=== PATIENT | female | born 1990 | race Caucasian/White ===

== ENCOUNTER 2024-05-06 14:34 | Inpatient (IN) ==
[2024-05-06] MEDS ORDERED: ACETAMINOPHEN 325 MG TAB PO PRN (15:05)
--- NOTE | 2024-05-06 15:33 | History & Physical Report ---
Date of Service May 06, 2024 Assessment & Plan (1) Irregular uterine contractions: Plan: 34-year-old G1, P0 at 37 weeks and 6 days of gestation who has been feeling contractions since last night, but more regular since this morning, Vital signs stable afebrile, heart rate reassuring, GBS negative, Cervix is 1 to 2 cm, toco showing contractions every 5 to 7 minutes, patient is talking through them without any signs of pain, We discussed options of expectant management, walking, going home and coming back when they become more painful and regular, pain management with IV Stadol and observe for at least an hour and see how she feels. After long discussion patient decided to stay and get IV Stadol one-time and then see how she feels in an hour or so, All questions were answered, Continue to monitor, Will evaluate in an hour. (2) False labor after 37 completed weeks of gestation: (3) Insulin controlled gestational diabetes mellitus (GDM) during : History of Present Illness Chief Complaint: Contractions Primary Care Provider: [facility] patient is a 34-year-old G1, P0 at 37 weeks and 6 days of gestation who was sent from office with contractions. Patient states she has been feeling contractions since last night when she woke up with some of them and went back to sleep. Since this morning contractions get more regular and more painful. She feels them every 6 to 7 minutes, pain level is between 6-7. She states she stops walking when they come when she is up but in the bed she feels better. She denies leakage of fluid or vaginal bleeding. She reports good movements. She was in the office this afternoon for routine OB visit and NST for GDM A2. [place] showed contractions every 6 to 7 minutes and her cervix was checked by a PA and sent here for possible labor. She states they have been the same since this morning. Her has been uncomplicated except GDM A2, on insulin, GBS negative. Allergies Allergy/AdvReac Type Severity Reaction Status Date / Time pineapple Allergy Anaphylaxis Verified 04/12/24 00:59 codeine AdvReac Headache Verified 04/12/24 00:59 Home Medications Medication Instructions Recorded Confirmed Type bupropion HCl 150 mg tablet,12 hr 150 mg PO DAILY 04/12/24 04/12/24 History sustained-release (Wellbutrin SR) insulin glargine 100 unit/mL (3 10 unit subcut HS 04/12/24 04/12/24 History mL) subcutaneous pen (Lantus Solostar U-100 Insulin) omeprazole 20 mg capsule,delayed 20 mg PO DAILY 04/12/24 04/12/24 History release sertraline 100 mg tablet (Zoloft) 200 mg PO HS 04/12/24 04/12/24 History Patient History Medical History Insulin controlled gestational diabetes mellitus (GDM) during History of HPV infection ADHD Depression with anxiety Surgical History [place] teeth removed Hx of appendectomy Social History Smoking Status: Never smoker Hx Alcohol Use: No Hx Substance Use: No Preferred Language: Urdu Communication Ability: Effective 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 Beliefs That Will Affect Care: Shinto marital status: Current Living Situation: Spouse Other Information That Helps Us Care for You: Yes (Dad wants to announce baby gender at ) Feels Safe at Home: Yes Review of Systems as per Subjective / HPI Physical Exam Constitutional: WD/WN, vitals as above well developed, well nourished and comfortable Gastrointestinal (Abdomen): normal bowel sounds, soft, nontender, no hepatosplenomegaly Genitourinary: normal external appearance OB Exam Abdomen: + vertex Manual OB Exam: + cervical dilation 1 cm (1-2), + cervical effacement 70% and + station -2 OB Exam Monitor Tracing: + external uterine monitor used and + category I Results & Data Vital Signs (Past 12 Hours) Vital Signs Pulse BP 05/06/24 14:52 95 H 120/79
[2024-05-06] MEDS: BUTORPHANOL TARTRATE 2 MG/ML VIAL IV ONE ×2 (16:11→21:09)
--- NOTE | 2024-05-06 18:26 | Obstetrical Progress Note ---
Date of Service May 06, 2024 Subjective Patient is reevaluated. She slept after IV Stadol was given and woke up with painful contractions. Not much change from earlier. No LOF/VB +FM VE: unchanged Patient is hungry desires to eat and then ambulate Continue to monitor Will recheck in 2 hours Results & Data Vital Signs (Past 12 Hours) Vital Signs Temp Pulse Resp BP 05/06/24 16:47 86 101/56 L 05/06/24 16:16 80 109/68 05/06/24 15:06 36.9 C 95 H 17 120/79 05/06/24 14:52 95 H 120/79 05/06/24 14:50 17 05/06/24 14:50 36.9 C 17
--- NOTE | 2024-05-06 20:58 | Obstetrical Progress Note ---
Date of Service May 06, 2024 Subjective Patient are dinner and walked around Pain is getting more intense, 8.5 /10 VE: 2-3 cm/ 80%, -1, tight amniotic bag, minimal change from last exam FHR categ I [place] ctxs q 5-7 min Patient desires another dose of IV stadol Start IVF bolus and reevaluate for early labor All questions were answered. Results & Data Vital Signs (Past 12 Hours) Vital Signs Temp Pulse Resp BP 05/06/24 19:00 36.6 C 18 05/06/24 19:00 36.6 C 72 18 99/65 L 05/06/24 16:47 86 101/56 L 05/06/24 16:16 80 109/68 05/06/24 15:06 36.9 C 95 H 17 120/79 05/06/24 14:52 95 H 120/79 05/06/24 14:50 17 05/06/24 14:50 36.9 C 17
[2024-05-06] MEDS: SODIUM CHLORIDE 0.9% 1,000 ML IV SCH ×2 (20:59→21:44)
--- OUTSIDE RECORDS SUMMARY | 2024-05-06 21:39 | External Medical Summary | Summary of Care ---
Author Name Unknown Organization [facility] Address [address] [place] [address] Phone [phone] Care Team Providers Care Business Analytics Analyst Name Role Phone René Valle MD Primary Care Provider [phone] Encounter Details Date Type Department Care Team (Late st Contact Info) Description 05/02/2024 8:45 AM EST Office Visit Administrative Hearing Officer Obstetrics Maternal Medicine, [address] [place] [address] Marika Carbajal, DO [address] [place] [address] Insulin controlled gestational diabetes mellitus (GDM) in third trimester*; Ultrasound for screening for growth restriction; 37 weeks gestation of Allergies Active Allergy Reactions Criticality Noted Date Comments Codeine 05/10/2022 Other Allergy (See Comments) 023 Pineapple Penicillins Rash Low 01/06/2013 Pineapple 01/07/2023 documented as of this encounter (statuses as of 05/02/2024) Medications Ondansetron HCl 4 MG Oral Tablet (Zofran) Take 1 Tablet by mouth every 8 hours as needed for Nausea. 60 Tablet 3 4 Active buPROPion HCl ER (SR) 150 MG Oral Tablet Extended Release 12 Hour (Wellbutrin SR)Indications:Re current major depressive disorder, in partial remission (HCC),DAVION (generalized anxiety disorder),Panic disorder Take 1 Tablet by mouth in the morning. 30 Tablet 5 4 Active famotidine 20 MG OR Take 0.5 Tablets by mouth in the morning. Active Sertraline HCl 100 MG Oral Tablet (Zoloft)Indicatio ns:Recurrent major depressive disorder, in partial remission (HCC),DAVION (generalized anxiety disorder),Panic disorder Take 2 Tablets by mouth every night at bedtime. 60 Tablet 5 4 Active Calcium Carbonate Antacid 500 MG Oral Tablet Chewable (Tums) Take 1 Tablet by mouth in the morning. Active Omeprazole Magnesium 20 MG Oral Tablet Delayed Release (PriLOSEC OTC) Take 1 Tablet by mouth in the morning. Active LeanAppsio Flex System w/Device Kit Use to test blood sugars 4 times daily (fasting, 1 hour after breakfast, lunch, and dinner) 1 Kit 4 Active Gaopenguch Delica Lancets 30G Use to test blood sugars 4 times daily (fasting, 1 hour after breakfast, lunch, and dinner) 200 Each 6 4 Active LeanAppsio In Vitro Strip (Glucose Blood) Use to test blood sugars 4 times daily (fasting, 1 hour after breakfast, lunch, and dinner) 125 Strip 6 4 Active Insulin Glargine Solostar 100 UNIT/ML Subcutaneous Solution Pen-injector (Lantus SoloStar)Indicati ons:Insulin controlled gestational diabetes mellitus (GDM) in third trimester Inject 10 Units under the skin at bedtime. 15 mL 3 4 Active BD Pen Needle Mini U/F 31G X 5 MM (Insulin Pen Needle)Indication s:Insulin controlled gestational diabetes mellitus (GDM) in third trimester Use with insulin once daily 100 Each 3 4 Active documented as of this encounter (statuses as of 05/02/2024) Active Problems Problem Noted Date Diagnosed Date History of respiratory syncytial virus (RSV) vac cination 04/08/2024 Overview (04/08/2024): 04/08/24 Iron deficiency anemia 03/13/2024 Insulin controlled gestation al diabetes mellitus (GDM) in third trimester 03/06/2024 Overview (04/29/2024): Diagnosed at 29 weeks Nutrition referral ordered; appt scheduled 03/13/2024 OneTouch Verio meter Lab Results Component Value Date/Time 50-G GESTATIONAL GLUCOSE, 1 HOUR - [facility] 133 (H) 02/28/2024 09:50 AM 100-G GESTATIONAL GLUCOSE, 1 HOUR - [facility] 180 (H) 03/06/2024 09:40 AM 100-G GESTATIONAL GLUCOSE, 2 HOUR - [facility] 170 (H) 03/06/2024 10:36 AM 100-G GESTATIONAL GLUCOSE, 3 HOUR - [facility] 102 03/06/2024 11:37 AM 100-G GESTATIONAL GLUCOSE, FASTING - [facility] 90 03/06/2024 08:34 AM 03/12/24: MFM [facility] consult complete. Referred to Current [facility]. Instructions provided to report blood sugars each week for MFM review; continue diet controlled 03/18/2024-RPM-3 of 7 elevated fasting blood sugars. Advised to watch diet, eat bedtime snack, and avoid fasting longer than 8 to 10 hours. Will review again next week. 03/25/2024-RPM-4 of 7 elevated fasting blood sugars. Sent message to patient and [facility] to schedule follow up [facility] appointment. 04/01/24: RPM reviewed; blood sugars still elevated in the morning; follow up [facility] scheduled 04/08. Will try to move up. 04/03/2024 Follow up [facility] compete; elevated fastings; Ordered Lantus 10 units at bedtime 04/08/20240611-NWU-oltzovx stable (2 elevated fasting blood sugars) 04/15/20242691-HLS-vmmsgyq stable (rare elevation) 04/22/24: RPM reviewed; stable; continue Lantus 10 units at bedtime 04/29/20242399-BUU-ehyizmlmj via hemal and messaging. Stable Assessment & Plan (04/04/2024 4:56 PM EST): Working with [facility]. Assessment & Plan (03/18/2024 9:13 AM EST): Managed by [facility]. Log reviewed with patient. All post-prandials within goal. Some elevated fastings to 96. Reviewed importance of nighttime snack with protein. Encouraged diet and exercise. Assessment & Plan (03/12/2024 9:43 AM EST): CONSIDERATIONS: Reviewed etiology and risks associated with gestational diabetes mellitus (GDM), including risks to , fetus, and maternal progression to Type 2 DM. Instructed on proper use of glucometer; supplies ordered, if indicated. Advised that life-long screening for diabetes is recommended every 1-3 years. RECOMMENDATIONS: Recommend monitoring blood sugars with daily fasting blood sugar (maintained at less than 95) and 1 hour postprandial measurements (maintained at less than 140). Medications should be adjusted to maintain these target values. Report levels to MFM (Maternal- Medicine) weekly. Recommend nutrition consult with RDN (Registered Dietitian Healthcare Customer Service). Lifestyle changes are also indicated including optimizing gestational weight gain and physical activity of 30 minutes per day, if not otherwise contraindicated in . Insulin is preferred if medications are indicated to optimize euglycemia. Metformin (preferred over glyburide) may also be used in some circumstances. Reviewed the risks and benefits of each. Recommend ultrasound, surveillance and delivery as follows: A1GDM, delivery should be accomplished by 41w0d. A2GDM, recommend growth assessment with MFM every 4 weeks, initiate surveillance with twice weekly NSTs at 32 weeks and continue until delivery at 39 weeks. Recommend intrapartum monitoring every 1-2 hours (A2GDM) or every 4 hours (A1GDM) and treat with insulin if indicated. Recommend 2-hour glucose tolerance testing with 75-gram glucose load during admission (or 6-8 weeks if not completed). Antepartum anemia complicating 024 Overview (03/12/2024): Blood management referral placed Anemia Labs Lab Results Component Value Date/Time HGB 10.9 (L) 02/28/2024 09:50 AM HCT 34.5 (L) 02/28/2024 09:50 AM FERRITIN - [facility] 16 02/28/2024 09:50 AM VITAMIN B12 - [facility] 437 02/28/2024 09:50 AM FOLIC ACID - [facility] 10.0 02/28/2024 09:50 AM IRON BINDING CAPACITY - [facility] 446 (H) 02/28/2024 09:50 AM MCV 90.3 02/28/2024 09:50 AM Assessment & Plan (03/18/2024 9:12 AM EST): Hgb 10.9, consistent with iron deficiency. Recommend iron BID with vitamin C. Patient reports she is going to be getting an iron infusion. Assessment & Plan (03/12/2024 9:44 AM EST): Recommend following departmental anemia protocol. Supervision of normal first , antepartu m 10/25/2023 Depression complicating , antepartum Overview (03/12/2024): History of anxiety and depression On meds at [facility] and feeling great. Taking Zoloft and Wellbutrin Managed by Psychiatrist - has appt scheduled 03/14/2024 Reports a stable mood in . Denies any suicidal or homicidal ideation. Reports she has a good support system at home. Assessment & Plan (03/17/2024 1:56 PM EST): Mood stable, denies SI/HI. Continue wellbutrin and zoloft. Assessment & Plan (03/12/2024 9:43 AM EST): CONSIDERATIONS: Untreated maternal anxiety and/or depression may be associated with an increased risk of multiple poor obstetrical outcomes including miscarriages, low weight, and delivery. Women with a history of anxiety or depression are at risk for recurrence both during and/or the period. Studies of first-trimester SSRI exposure do not demonstrate consistent data to support an increased risk for structural malformations. Anti-anxiety or depression medications have been associated with transient effects (withdrawal syndrome). RECOMMENDATIONS: Mental illness can and should be treated during when the benefits of treatment outweigh potential risks. Referral to behavioral health services as clinically indicated. Dyslipidemia 12/21/2022 Irritable bowel syndrome with diarrhea Depression with anxiety 06/10/2022 ADHD (attention deficit hype ractivity disorder), combined type 06/10/2022 High risk HPV infection 06/10/2022 Estimated Date of Delivery Comme nts Yes 05/21/2024 Based on last me nstrual period of 08/15/2023 (Exact Date) documented as of this encounter (statuses as of 05/02/2024) Resolved Problems Problem Noted Date Diagnosed Date Resolved Date Abnormal glucose tolerance i n mother complicating 02/29/2024 04/03/2024 Overview (02/29/2024): Failed glucola. 3hr GTT ordered documented as of this encounter (statuses as of 05/02/2024) Immunizations Name Administration Dates Next Due RSV Vac., Bivalent, Perfusion F, Pf,0.5 Ml (Abry svo) 04/08/2024 Seasonal Influenza, Trivalent, (IIV3), PF, (Fluz one) 01/31/2024 TDAP, Age 7 and older, IM (Adacel) 02/28/2024 documented as of this encounter Social History Tobacco Use Types Packs/Day Years Used Date Smoking Tobacco: Never Passive Smoke Exposure: Never Smokeless Tobacco: Never Alcohol Use Standard Drinks/Week Comments Not Currently 0 (1 standard drink = 0.6 oz pur e alcohol) denies in Hunger Vital Sign Answer Date Recorded Within the past 12 months, y ou worried that your food would run out before you got the money to buy more. Never true 12/20/19 24 Within the past 12 months, t he food you bought just didn't last and you didn't have money to get more. Never true 12/20/2023 [place] Depression Scale Answer Date Recorded [place] Depression Scale Total 11 10/25/2023 The thought of harming myself has occurred to me . Never 10/25/2023 Childcare Answer Date Recorded Do you feel overwhelmed with taking care of a child, family member or friend? No 12/20/2023 Does your family need help f inding childcare? (Household - for ages 0-17 years) Not on file 12/20/2023 Clothing Answer Date Recorded Have you been unable to get clothing when it was really needed? No 12/20/2023 Is your family able to get c lothes or diapers when needed? (Household - for ages 0-17 years) Not on file 12/20/2023 Personal Safety Answer Date Recorded Do you feel unsafe or have concerns for your saf ety? No 12/20/2023 Do you have concerns for you r family's safety? (Household - for ages 0-17 years) Not on file 12/20/2023 Utilities Answer Date Recorded Do you have trouble paying y our heating, water, or electric bill? No 12/20/2023 Is your family able to pay t he heat, water, or electric bill? (Household - for ages 0-17 years) Not on file 12/20/2023 Does your family have access to good internet? (Household - for ages 0-17 years) Not on file 12/20/2023 Employment Status Answer Date Recorded Are you unemployed or without regular income? No 12/20/2023 Does the household have a re lar source of income? (Household - for ages 0-17 years) Not on file 12/20/2023 Social Connections Answer Date Recorded How often do you feel lonely or isolated from th ose around you? Never 12/20/2023 Financial Resource Strain Answer Date R ecorded Do you have any trouble payi ng for your medications, or do you think you might in the future? No 12/20/2023 Does your family have troubl e paying for medicine? (Household - for ages 0-17 years) Not on file 12/20/2023 Transportation Needs Answer Date Record ed READ ONLY Do you have troubl e getting a ride to medical visits or work? Never True 12/20/2023 Does your family have a hard time getting a ride to doctors visits? (Household - for ages 0-17 years) Not on file 12/20/2023 Has lack of transportation k ept you from medical appointments, meetings, work, or from getting things needed for daily living? Check all that apply. No 12/20/2023 Do you (or your family) have trouble finding or paying for a ride (transportation)? (Household - for ages 0-17 years) Not on file 12/20/2023 Housing Stability Answer Date Recorded Do you currently live in a s helter or have no steady place to sleep at night? No 12/20/2023 READ ONLY Do you think you a re at risk of becoming homeless? No 12/20/2023 Does your family worry about paying for your home or becoming homeless? (Household - for ages 0-17 years) Not on file 0 12/20/2023 Are you homeless or worried that you might be in the future? No 12/20/2023 Are you (or your family) manuelito eless or worried that you might be in the future? (Household - for ages 0-17 years) Not on file Food Insecurity Answer Date Recorded Do you need food for this week? No 12/20/2023 Are you able to get enough f ood for your family? (Household - for ages 0-17 years) Not on file 12/20/2023 Does your family need food t his week? (Household - for ages 0-17 years) Not on file 12/20/2023 Do you always have enough fo od for your family? (Household - for ages 0-17 years) Not on file 12/20/2023 Estimated Date of Delivery Comme nts Yes 05/21/2024 Based on last me nstrual period of 08/15/2023 (Exact Date) Sex and Gender Information Value Date Recorded Sex Assigned at Female 05/16/2022 8:06 AM EST Legal Sex Female 1:20 PM EDT Gender Identity Female 05/16/2022 8:06 AM EST Sexual Orientation Straight 05/16/2022 8: 06 AM EST Occupation Industry Job Start Date Job End Date [employer] Not on file Not on file Not on file documented as of this encounter Progress Notes * Marika Carbajal, DO - 05/02/2024 9:50 AM EST Ru presented today at 37w2d for an ultrasound for the following indications: Insulin controlled gestational diabetes mellitus (GDM) in third trimester Ultrasound for screening for growth restriction 37 weeks gestation of Ultrasound summary: Patient presented at 37w 2d for growth assessment. Normal growth with EFW 2611 g at 12%ile. Normal RIA at 9.3 cm. Cephalic presentation. I reviewed the ultrasound images. Ru was given the opportunity to meet with me if she had any questions. Please refer to the ultrasound report for additional details about today's ultrasound examination. RECOMMENDATIONS: Follow up with MFM for ultrasound as clinically indicated. 2x weekly NSTs. See prior formal MFM consultation note. Thank you for allowing us to participate in the care of this patient. Please call with any questions. Marika Carbajal DO 05/02/2024 9:50 AM documented in this encounter Plan of Treatment Upcoming Encounters Date Type Department Care Team (Late st Contact Info) Description 05/06/2024 1:15 PM EST Office Visit Gynecology/Obstetrics Leila Lynn [address] [place] [address] Rita Benton CRNP [address] [place] [address] Erin Lynn Stress Tests М[facility]ина [address] [place] [address] 05/07/2024 9:30 AM EST Pharmacy Pharmacy, [address] [address] 05/09/2024 9:00 AM EST Office Visit Gynecology/Obstetrics Leila Lynn [address] [place] [address] Floresita Cm PA-C [address] [place] [address] Shane Non Stress Tests [address] [place] [address] 05/13/2024 1:00 PM EST Office Visit Gynecology/Obstetrics [facility] Lynn [address] [place] [address] Rita Benton CRNP [address] [place] [address] Erin Lynn Stress Tests [address] [place] [address] 05/16/2024 9:45 AM EST Office Visit Gynecology/Obstetrics Leila Lynn [address] [place] [address] Stacey Wei CRNP [address] [place] [address] Shane, Non Stress Tests [address] [place] [address] Health Maintenance Due Date Last Done Comments Depression Monitoring 2004 Hepatitis B Vaccine (1 of 3 - 19+ 3-dose series) 2011 COVID-19 Vaccine (2 - 2023-2 5 season) 2023 04/04/2022 Pap Smear 05/23/2026 05/23/2023, 05/18/2022 Cervical Cancer Screening 05/23/2028 HPV/Co-Test 05/23/2028 05/23/2023, 05/18/2022 DTap/Tdap Vaccines (2 - Td o r Tdap) 02/27/2034 02/28/2024 Influenza Vaccine (FLU shot) Completed 06/2023, 04/02/2014, 03/07/2013 HPV (Gardasil) Vaccine Aged Out No lo nger eligible based on patient's age to complete this topic MENINGOCOCCAL (MENACTRA/MENVEO) Aged Out No longer eligible b ased on patient's age to complete this topic Pneumococcal Vaccine: Pediatrics (0 to 5 Years) and At-Risk Patients (6 to 18 Years and 19+ Years) Aged Out No longer eligible based on patient's age to complete this topic documented as of this encounter Medical Devices Not on filedocumented as of this encounter Visit Diagnoses Diagnosis Supervision of high risk in third trimester- Primary Unspecified high-risk 30 weeks gestation of state, incidental Diet controlled gestational diabetes mellitus (GDM) in third trimester Depression complicating , antepartum Mental disorders of mother, antepartum Antepartum anemia complicating Anemia, antepartum Diet controlled gestational diabetes mellitus (GDM) in third trimester- Primary Antepartum anemia complicating Anemia, antepartum Depression complicating , antepartum Mental disorders of mother, antepartum 30 weeks gestation of state, incidental Insulin controlled gestational diabetes mellitus (GDM) in third trimester- Primary Ultrasound for screening for growth restriction screening for growth retardation using ultrasonics 33 weeks gestation of state, incidental Insulin controlled gestational diabetes mellitus (GDM) in third trimester- Primary Ultrasound for screening for growth restriction screening for growth retardation using ultrasonics 37 weeks gestation of state, incidental documented in this encounter Care Teams Business Analytics Analyst Relationship Specialty Start Date End Date René Valle MD [address] [place] [address] PCP - General Family Medicine 05/19/22 documented as of this encounter
--- OUTSIDE RECORDS SUMMARY | 2024-05-06 21:39 | External Medical Summary | Summary of Care ---
Author Name Unknown Organization [facility] Address [address] [facility] [place] [address] Phone [phone] Care Team Providers Care Creative Producer Name Role Phone René Valle MD Primary Care Provider [phone] [phone] Reason for Visit * Reason Comments Return Visit Non Stress Test Encounter Details Date Type Department Care Team (Late st Contact Info) Description 04/25/2024 1:00 PM EST Office Visit Gynecology/Obstetric s [facility] [address] [place] [address] Stacey Wei CRNP [address] [place] [address] Shane Non Stress Tests Марина [address] [place] [address] Supervision of normal first , antepartum*; Depression complicating , antepartum; Antepartum anemia complicating ; Insulin controlled gestational diabetes mellitus (GDM) in third trimester; History of respiratory syncytial virus (RSV) vaccination; Non-reactive NST (non-stress test); Vulvar irritation Allergies Active Allergy Reactions Criticality Noted Date Comments Codeine 05/10/2022 Other Allergy (See Comments) 023 Pineapple Penicillins Rash Low 01/06/2013 Pineapple 01/07/2023 documented as of this encounter (statuses as of 04/25/2024) Medications Ondansetron HCl 4 MG Oral Tablet [...] Tablet by mouth in the morning. Active Thermedical Flex System w/Device Kit Use to test blood sugars 4 times daily (fasting, 1 hour after breakfast, lunch, and dinner) 1 Kit 4 Active [employer] Delica Lancets 30G Use to test blood sugars 4 times daily (fasting, 1 hour after breakfast, lunch, and dinner) 200 Each 6 4 Active Thermedical In Vitro Strip (Glucose Blood) Use to [...] with insulin once daily 100 Each 3 12/04/202 4 Active documented as of this encounter (statuses as of 04/25/2024) Active Problems Problem Noted Date Diagnosed Date History of respiratory syncytial virus (RSV) vac cination 04/08/2024 Overview (04/08/2024): 04/08/24 Iron deficiency anemia 03/13/2024 Insulin controlled gestation al diabetes mellitus (GDM) in third trimester 03/06/2024 Overview (04/22/2024): Diagnosed at 29 weeks Nutrition referral ordered; [...] blood sugars. Sent message to patient and [facility] PARs to schedule follow up ADAPT appointment. 04/01/24: RPM reviewed; blood sugars still elevated in the morning; follow up ADAPT scheduled 04/08. Will try to move up. 04/03/2024 Follow up ADAPT compete; elevated fastings; Ordered Lantus 10 units at bedtime 04/08/20247664-YTC-kekjwxj stable (2 elevated fasting blood sugars) 04/15/20248365-USW-crguhuf stable (rare elevation) 04/22/24: RPM reviewed; stable; continue Lantus 10 units at bedtime Assessment & Plan (04/04/2024 4:56 PM EST): [...] Recommend nutrition consult with RDN (Registered Dietitian Manager [place]). Lifestyle changes are also indicated including optimizing [...] as of this encounter (statuses as of 04/25/2024) Resolved Problems Problem Noted Date Diagnosed Date Resolved Date Abnormal glucose tolerance i n mother complicating 02/29/2024 04/03/2024 Overview (02/29/2024): Failed glucola. 3hr GTT ordered documented as of this encounter (statuses as of 04/25/2024) Immunizations Name Administration Dates Next Due RSV [...] money to get more. Never true 12/20/2023 [place] Depression Scale Answer Date Recorded [place] Depression Scale Total 11 10/25/2023 The thought [...] No 12/20/2023 Does the household have a [facility] source of income? (Household - for ages [...] on file documented as of this encounter Last Filed Vital Signs Vital Sign Reading Time Taken Comments Blood Pressure 122/78 04/25/2024 1:25 PM EST Pulse - - Temperature - - Respiratory Rate - - Oxygen Saturation - - Inhaled Oxygen Concentration - - Weight 71.2 kg (157 lb) 04/25/2024 1:25 PM EST Height - - Body Mass Index 27.81 04/15/2024 10:48 AM EST documented in this encounter Progress Notes * Stacey Wei CRNP - 04/25/2024 1:25 PM EST 36w2d Used Monistat a few weeks ago for a yeast infection, still with some irritation. BV swab completed today. No other concerns. Baby is active. No contractions, bleeding, LOF. GBS today as well. 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 Name of java developer architect: Negin ASSESSMENT assessment with Non-stress Test completed on 04/25/2024 at 36.2weeks gestation for indicationof gestational diabetes mellitus heart baseline: 140 bpm Variability: Moderate Decelerations: absent Accelerations: present Contractions: None NST start time: 1256 NST stop time: 1330 NST strip reviewed, interpreted, and approved by OB provider, SAHIL Torres . NST strip stored in clinic storage file * Negin Yu CMA - 04/25/2024 1:25 PM EST 36w2d GBS swab today Denies any concerns documented in this encounter Plan of Treatment Upcoming Encounters Date Type Department Care Team (Late st Contact Info) Description 04/29/2024 10:15 AM EST Office Visit Gynecology/Obstetrics [facility] [address] [place] [address] Rita Benton CRNP [address] [place] [address] Erin Lynn Stress Tests Марина [place] [address] 05/02/2024 8:45 AM EST Imaging Maternal Medicine Imaging, Марина Lynn [address] [place] [address] 05/02/2024 11:00 AM EST Office Visit Gynecology/Obstetrics Leila Lynn [address] [place] [address] Floresita Cm PA-C [address] [place] [address] 05/06/2024 1:15 PM EST Office Visit Gynecology/Obstetrics [facility] [address] [place] [address] BackRita mcclelland CRNP [address] [place] [address] Shane Non Stress Tests Марина [address] [place] [address] 05/07/2024 9:30 AM EST Pharmacy Pharmacy, [address] [address] 05/09/2024 9:00 AM EST Office Visit Gynecology/Obstetrics [facility] [address] [place] [address] Floresita Cm PA-C [address] [place] [address] Shane Non Stress Tests Марина [address] [place] [address] 05/13/2024 1:00 PM EST Office Visit Gynecology/Obstetrics [facility] [address] [place] [address] Rita Benton CRNP [address] [place] [address] Shane Non Stress Tests Марина [address] [place] [address] 05/16/2024 9:45 AM EST Office Visit Gynecology/[facility]st[facility] [address] [place] [address] Stacey Wei, FINANCIAL SERVICES SPECIALIST [address] [place] [address] Lynn, Non Stress Tests Марина [address] [place] [address] Scheduled Orders Name Type Priority Associated Diagnoses Orde r Schedule GROUP B STREP CULTURE/PCR Lab Routine Supervision of normal first , antepartum Expected: 04/25/2024, Expires: 04/25/2025 BPP W/O NON-STRESS TEST Medical Imaging Routine Non-reactive NST (non-stress test) Expected: 04/25/2024, Expires: 05/26/2025 VAGINOSIS PANEL, PCR Lab Routine Vulvar irritation Expected: 04/25/2024, Expires: 04/25/2025 Health Maintenance Due Date Last Done Comments Depression Monitoring 2004 Hepatitis B Vaccine (1 of 3 - 19+ 3-dose series) 2011 COVID-19 Vaccine ( - 2023-2 5 season) 2023 04/04/2022 Pap [...] ultrasonics 33 weeks gestation of state, incidental Supervision of normal first , antepartum- Primary Depression complicating , antepartum Mental disorders of mother, antepartum Antepartum anemia complicating Anemia, antepartum Insulin controlled gestational diabetes mellitus (GDM) in third trimester History of respiratory syncytial virus (RSV) vaccination Non-reactive NST (non-stress test) Abnormal findings on screening Vulvar irritation Other specified noninflammatory disorder of vulva and perineum documented in this encounter Care Teams Creative Producer Relationship Specialty Start Date End Date René Valle MD [address] [place] [address] PCP - General Family Medicine 05/19/22 documented as of this encounter
--- OUTSIDE RECORDS SUMMARY | 2024-05-06 21:39 | External Medical Summary | Summary of Care ---
Author Name Unknown Organization [facility] Address [address] [place] [address] Phone [phone] Care Team Providers Care Clinical Courier Name Role Phone René Valle MD Primary Care Provider [phone] Encounter Details Date Type Department Care Team (Late st Contact Info) Description 05/02/2024 8:45 AM EST Office Visit Nail Making Machine Tender Obstetrics Maternal Medicine, [address] [place] [address] Marika Carbajal, DO [address] [place] [address] Insulin controlled gestational diabetes mellitus [...] Tablet by mouth in the morning. Active FlexMinderio Flex System w/Device Kit Use to test blood sugars 4 times daily (fasting, 1 hour after breakfast, lunch, and dinner) 1 Kit 4 Active Diabetic[employer]uch Delica Lancets 30G Use to test blood sugars 4 times daily (fasting, 1 hour after breakfast, lunch, and dinner) 200 Each 6 4 Active FlexMinderio In Vitro Strip (Glucose Blood) Use to [...] blood sugars. Sent message to patient and [facility] PARs to schedule follow up ADAPT appointment. 04/01/24: RPM reviewed; blood sugars still elevated in the morning; follow up ADAPT scheduled 04/08. Will try to move up. 04/03/2024 Follow up ADAPT compete; elevated fastings; Ordered Lantus 10 units at bedtime 04/08/20245249-OVK-ciuncnw stable (2 elevated fasting blood sugars) 04/15/20247366-VDD-hcohrhk stable (rare elevation) 04/22/24: RPM reviewed; stable; continue Lantus 10 units at bedtime 04/29/20245103-DZP-ojxqxukog via hemal and messaging. Stable Assessment & [...] Recommend nutrition consult with RDN (Registered Dietitian Director Medical Economics). Lifestyle changes are also indicated including optimizing [...] money to get more. Never true 12/20/2023 [place] Depression Scale Answer Date Recorded [place] Depression Scale Total 11 10/25/2023 The thought [...] Team (Late st Contact Info) Description 05/02/2024 11:00 AM EST Office Visit Gynecology/Obstetrics [facility] [address] [place] [address] Floresita Cm PA-C [address] [place] [address] 05/06/2024 1:15 PM EST Office Visit Gynecology/Obstetrics [facility] [address] [place] [address] BackerRita CRNP [address] [place] [address] Shane Non Stress Tests Марина [address] [place] [address] 05/07/2024 9:30 AM EST Pharmacy Pharmacy, [place] [address] [place] [address] Clinic, [place] [address] [place] [address] 05/09/2024 9:00 AM EST Office Visit Gynecology/Obstetrics [facility] [address] [place] [address] Floresita Cm PA-C [address] [place] [address] Shane Non Stress Tests Марина [address] [place] [address] 05/13/2024 1:00 PM EST Office Visit Gynecology/Obstetrics [facility] [address] [place] [address] EriserRita CRNP [address] [place] [address] Shaen, Non Stress Tests Марина [place] [place] [address] 05/16/2024 9:45 AM EST Office Visit Gynecology/Obstetrics Leila Lynn [address] [place] [address] Stacey Wei CRNP [address] [place] [address] Lynn, Non Stress Tests Марина [address] [place] [address] Health Maintenance Due Date Last Done Comments [...] incidental documented in this encounter Care Teams Clinical Courier Relationship Specialty Start Date End Date René Valle MD [address] [facility] [place] [address] PCP - General Family Medicine 05/19/22 documented as of this encounter
--- OUTSIDE RECORDS SUMMARY | 2024-05-06 21:39 | External Medical Summary | Summary of Care ---
Author Name Unknown Organization [facility] Address [address] [facility] [place] [address] Phone [phone] Care Team Providers Care Entry Level Account Executive Name Role Phone René Valle MD Primary Care Provider [phone] Reason for Visit * Reason Onset Date Comments Test Results 04/26/2024 Encounter Details Date Type Department Care Team (Late st Contact Info) Description 04/26/2024 Telephone Gynecology/Obstetrics [facility] [address] [place] [address] Rita Benton CRNP [address] [place] [address] Test Results Allergies Active Allergy Reactions Criticality Noted Date Comments Codeine 05/10/2022 Other Allergy (See Comments) 023 Pineapple Penicillins Rash Low 01/06/2013 Pineapple 01/07/2023 documented as of this encounter (statuses as of 04/26/2024) Medications Ondansetron HCl 4 MG Oral Tablet [...] Tablet by mouth in the morning. Active [employer]Names Flex System w/Device Kit Use to test blood sugars 4 times daily (fasting, 1 hour after breakfast, lunch, and dinner) 1 Kit 4 Active Diurnal [employer] Lancets 30G Use to test blood sugars 4 times daily (fasting, 1 hour after breakfast, lunch, and dinner) 200 Each 6 4 Active [employer] In Vitro Strip (Glucose Blood) Use to [...] as of this encounter (statuses as of 04/26/2024) Active Problems Problem Noted Date Diagnosed Date [...] blood sugars. Sent message to patient and [facility] PARs to schedule follow up ADAPT appointment. 04/01/24: RPM reviewed; blood sugars still elevated in the morning; follow up ADAPT scheduled 04/08. Will try to move up. 04/03/2024 Follow up ADAPT compete; elevated fastings; Ordered Lantus 10 units at bedtime 04/08/20247834-RYG-fpfpfwc stable (2 elevated fasting blood sugars) 04/15/20243275-ICY-wzelegd stable (rare elevation) 04/22/24: RPM reviewed; stable; [...] Recommend nutrition consult with RDN (Registered Dietitian Front Desk Supervisor). Lifestyle changes are also indicated including optimizing [...] as of this encounter (statuses as of 04/26/2024) Resolved Problems Problem Noted Date Diagnosed Date Resolved Date Abnormal glucose tolerance i n mother complicating 02/29/2024 04/03/2024 Overview (02/29/2024): Failed glucola. 3hr GTT ordered documented as of this encounter (statuses as of 04/26/2024) Immunizations Name Administration Dates Next Due RSV [...] money to get more. Never true 12/20/2023 [place] Depression Scale Answer Date Recorded [place] Depression Scale Total 11 10/25/2023 The thought [...] 12/20/2023 Does the household have a re gular source of income? (Household - for ages [...] on file documented as of this encounter Miscellaneous Notes * Telephone Encounter - Patrica Bella RN - 04/26/2024 12:13 PM EST Patient returned call and made aware. Patient verbalized understanding. * Telephone Encounter - Svetlana Andrews RN - 04/26/2024 11:44 AM EST left message for patient to call office * Telephone Encounter - Rita Benton CRNP - 04/26/2024 11:01 AM EST Covering for Satcey; +yeast. Recommend Monistat 7 day OTC. SAHIL Zepeda documented in this encounter Plan of Treatment Upcoming Encounters Date Type Department Care Team (Late st Contact Info) Description 04/29/2024 10:15 AM EST Office Visit Gynecology/Obstetrics Leila Lynn [address] [place] [address] Rita Benton CRNP [address] [place] [address] Erin Lynn Stress Tests Марина [address] [place] [address] 05/02/2024 8:45 AM EST Imaging Maternal Medicine Imaging, Марина Ludwigs [address] [place] [address] 05/02/2024 11:00 AM EST Office Visit Gynecology/Obstetrics Leila Lynn [address] [place] [address] Florestia Cm PA-C [address] [place] [address] 05/06/2024 1:15 PM EST Office Visit Gynecology/Obstetrics Leila Lynn [address] [place] [address] Rita Benton CRNP [address] [place] [address] Erin Lynn Stress Tests Марина [address] [place] [address] 05/07/2024 9:30 AM EST Pharmacy Pharmacy, [place] [address] [place] [address] [facility] [address] [place] [address] 05/09/2024 9:00 AM EST Office Visit Gynecology/Obstetrics [facility] [address] [place] [address] Floresita Cm PA-C [address] [place] [address] Lynn, Non Stress Tests [facility] [address] [place] [address] 05/13/2024 1:00 PM EST Office Visit Gynecology/Obstetrics [facility] [address] [place] [address] Rita Benton CRNP [address] [place] [address] Shane Non Stress Tests [facility] [address] [place] [address] 05/16/2024 9:45 AM EST [facility] [address] [place] [address] Stacey Wei CRNP [address] [place] [address] Lynn, Non Stress Tests [facility] [address] [place] [address] Health Maintenance Due Date Last Done Comments [...] Not on filedocumented as of this encounter Care Teams Entry Level Account Executive Relationship Specialty Start Date End Date René Valle MD [address] [place] [address] PCP - General Family Medicine 05/19/22 documented as of this encounter
--- OUTSIDE RECORDS SUMMARY | 2024-05-06 21:39 | External Medical Summary | Summary of Care ---
Author Name Unknown Organization [facility] Address [address] [place] [address] Phone [phone] Care Team Providers Care Digital Marketing Specialist Name Role Phone René Valle MD Primary Care Provider [phone] Reason for Visit * Reason Onset Date Comments Anemia Follow-Up 04/23/2024 Encounter Details Date Type Department Care Team (Late st Contact Info) Description 04/23/2024 9:30 AM EST Pharmacy Pharmacy, [place] [address] [place] [address] Clinic, Anemia [address] [place], [place] [id number] Iron deficiency anemia, unspecified iron deficiency anemia type* Allergies Active Allergy Reactions Criticality Noted Date Comments Codeine 05/10/2022 Other Allergy (See Comments) 023 Pineapple documented as of this encounter (statuses as of 04/23/2024) Medications Ondansetron HCl 4 MG Oral Tablet [...] Tablet by mouth in the morning. Active [employer] Flex System w/Device Kit Use to test blood sugars 4 times daily (fasting, 1 hour after breakfast, lunch, and dinner) 1 Kit 4 Active [email or web address] Delica Lancets 30G Use to test blood sugars 4 times daily (fasting, 1 hour after breakfast, lunch, and dinner) 200 Each 6 4 Active PT PAL In Vitro Strip (Glucose Blood) Use to [...] as of this encounter (statuses as of 04/23/2024) Active Problems Problem Noted Date Diagnosed Date [...] blood sugars. Sent message to patient and [facility] PARs to schedule follow up ADAPT appointment. 04/01/24: RPM reviewed; blood sugars still elevated in the morning; follow up ADAPT scheduled 04/08. Will try to move up. 04/03/2024 Follow up ADAPT compete; elevated fastings; Ordered Lantus 10 units at bedtime 04/08/20244728-ULO-vsgmjod stable (2 elevated fasting blood sugars) 04/15/20242458-CKS-ibkatzm stable (rare elevation) 04/22/24: RPM reviewed; stable; [...] Recommend nutrition consult with RDN (Registered Dietitian Retail Advisor). Lifestyle changes are also indicated including optimizing [...] as of this encounter (statuses as of 04/23/2024) Resolved Problems Problem Noted Date Diagnosed Date Resolved Date Abnormal glucose tolerance i n mother complicating 02/29/2024 04/03/2024 Overview (02/29/2024): Failed glucola. 3hr GTT ordered documented as of this encounter (statuses as of 04/23/2024) Immunizations Name Administration Dates Next Due RSV [...] money to get more. Never true 12/20/2023 [place] Depression Scale Answer Date Recorded [place] Depression Scale Total 11 10/25/2023 The thought [...] as of this encounter Progress Notes * Vi Negron RPh - 04/23/2024 2:36 PM EST Patient Phone Numbers Called patient to review labs from 04/18. AIMEEOVM. GA: 36w0d Estimated Date of Delivery: 05/21/24 Hgb: 11.9 g/dL TSAT: 16 % Ferritin: 510 ng/mL B12: 453 pg/mL FA: 10.0 ng/mL Patient is s/p Infed 1gm x 1 on 03/21. Hgb is within target range for the third trimester. Iron studies within target range. Plan: No anemia pharmacological intervention at this time. Anemia Clinic will continue to follow. Thank you for allowing us to participate in the care of thispatient. Thanks, Vi Negron RPh Clinical Pharmacist [facility] (P: [phone]) 04/23/2024 2:36 PM documented in this encounter Plan of Treatment Upcoming Encounters Date Type Department Care Team (Late st Contact Info) Description 04/25/2024 1:00 PM EST Office Visit Gynecology/Obstetrics Leila Lynn [address] [place] [address] Stacey Wei CRNP [address] [place] [address] Erin Lynn Stress Tests Марина [address] [place] [address] 04/29/2024 10:15 AM EST Office Visit Gynecology/Obstetrics Leila Lynn [address] [place] [address] Rita Benton CRNP [address] [place] [address] Erin Lynn Stress Tests Марина [address] [place] [address] 05/02/2024 8:45 AM EST Imaging Maternal Medicine Imaging, Марина Lynn [address] [place] [address] 05/02/2024 11:00 AM EST Office Visit Gynecology/Obstetrics Leila Lynn [address] [place] [address] Floresita Cm PA-C [address] [place] [address] 05/06/2024 1:15 PM EST Office Visit Gynecology/Obstetrics Leila Lynn [address] [place] [address] Rita Benton CRNP [address] [place] [address] Erin Lynn Stress Tests Марина [address] [place] [address] 05/07/2024 9:30 AM EST Pharmacy Pharmacy, [place] [address] [place] [address] Clinic, [facility] [address] [place] [address] 05/09/2024 9:00 AM EST Office Visit Gynecology/Obstetrics Leila Lynn [address] [place] [address] Floresita Cm PA-C [address] [place] [address] Shane Non Stress Tests Марина [address] [place] [address] 05/13/2024 1:00 PM EST Office Visit Gynecology/Obstetrics Leila Lynn [address] [place] [address] Rita Benton CRNP [address] [place] [address] Erin Lynn Stress Tests Марина [address] [place] [address] 05/16/2024 9:45 AM EST Office Visit Gynecology/Obstetrics Leila Lynn [address] [place] [address] Stacey Wei CRNP [address] [place] [address] Shane Non Stress Tests Марина [address] [place] [address] Health Maintenance Due Date Last Done Comments [...] 5 Years) and At-Risk Patients (6 to 64 Years) Aged Out No longer eligible b ased [...] ultrasonics 33 weeks gestation of state, incidental Iron deficiency anemia, unspecified iron deficiency anemia type- Primary documented in this encounter Care Teams Digital Marketing Specialist Relationship Specialty Start Date End Date René Valle MD [address] [place] [address] PCP - General Family Medicine 05/19/22 documented as of this encounter
--- OUTSIDE RECORDS SUMMARY | 2024-05-06 21:39 | External Medical Summary ---
Author Name Unknown Address Unknown Organization K01:[facility] [address] [place] [address] Laboratory Report Ordering Provider Test Date Status MARCY BABIN 04/25/2024 14:01:35 Final Observation Date Value Abnormality Reference (Units ) Status Streptococcus agalactiae DNA [Presence] in Specimen by JANELLE with probe detection 04/25/2024 14:01:35 Negative Negative Final No Group B Streptococcus det ected by culture-enhanced PCR (amplified probe). GBS GBSCT - [facility] 04/25/2024 14:01:35 0.0 Final GBS SPCCT - [facility] 04/25/2024 14:01:35 33.1 Final Performing Location [facility] - [address] [place] [address]
--- OUTSIDE RECORDS SUMMARY | 2024-05-06 21:39 | External Medical Summary | Summary of Care ---
Author Name Unknown Organization [facility] Address [address] [facility] [place] [address] Phone [phone] Care Team Providers Care Sourcer Name Role Phone René Valle MD Primary Care Provider [phone] [phone] Reason for Visit * Reason Comments Return Visit Non Stress Test Encounter Details Date Type Department Care Team (Late st Contact Info) Description 04/29/2024 10:15 AM EST Office Visit Gynecology/Obstetric s [facility] [address] [place] [address] Rita Benton CRNP [address] [place] [address] Lynn, Non Stress Tests Марина [address] [place] [address] Supervision of normal first , antepartum*; Depression complicating , antepartum; Antepartum anemia complicating ; Insulin controlled gestational diabetes mellitus (GDM) in third trimester; History of respiratory syncytial virus (RSV) vaccination Allergies Active Allergy Reactions Criticality Noted Date Comments Codeine 05/10/2022 Other Allergy (See Comments) 023 Pineapple Penicillins Rash Low 01/06/2013 Pineapple 01/07/2023 documented as of this encounter (statuses as of 04/29/2024) Medications Ondansetron HCl 4 MG Oral Tablet [...] Tablet by mouth in the morning. Active DuckDuckGoio Flex System w/Device Kit Use to test blood sugars 4 times daily (fasting, 1 hour after breakfast, lunch, and dinner) 1 Kit 4 Active J-Kan Delica Lancets 30G Use to test blood sugars 4 times daily (fasting, 1 hour after breakfast, lunch, and dinner) 200 Each 6 4 Active SmartHabitat In Vitro Strip (Glucose Blood) Use to [...] as of this encounter (statuses as of 04/29/2024) Active Problems Problem Noted Date Diagnosed Date [...] blood sugars. Sent message to patient and [facility] to schedule follow up ADAPT appointment. 04/01/24: RPM reviewed; blood sugars still elevated in the morning; follow up ADAPT scheduled 04/08. Will try to move up. 04/03/2024 Follow up ADAPT compete; elevated fastings; Ordered Lantus 10 units at bedtime 04/08/20242143-FHX-ospombd stable (2 elevated fasting blood sugars) 04/15/20246624-HLD-ehnednk stable (rare elevation) 04/22/24: RPM reviewed; stable; [...] Recommend nutrition consult with RDN (Registered Dietitian Industrial Laborer). Lifestyle changes are also indicated including optimizing [...] Dyslipidemia 12/21/2022 Irritable bowel syndrome with diarrhea 3 Depression with anxiety 06/10/2022 ADHD (attention deficit hype ractivity disorder), combined type 06/10/2022 High risk HPV infection 06/10/2022 Estimated Date of Delivery Comme nts Yes 05/21/2024 Based on last me nstrual period of 08/15/2023 (Exact Date) documented as of this encounter (statuses as of 04/29/2024) Resolved Problems Problem Noted Date Diagnosed Date Resolved Date Abnormal glucose tolerance i n mother complicating 02/29/2024 04/03/2024 Overview (02/29/2024): Failed glucola. 3hr GTT ordered documented as of this encounter (statuses as of 04/29/2024) Immunizations Name Administration Dates Next Due RSV [...] money to get more. Never true 12/20/2023 [place] Depression Scale Answer Date Recorded [place] Depression Scale Total 11 10/25/2023 The thought [...] No 12/20/2023 Does the household have a [facility]? (Household - for ages [...] Sign Reading Time Taken Comments Blood Pressure 126/76 04/29/2024 10:30 AM EST Pulse - - Temperature - - Respiratory Rate - - Oxygen Saturation - - Inhaled Oxygen Concentration - - Weight 71.8 kg (158 lb 6.4 oz) 04/29/2024 10:30 AM EST Height - - Body Mass Index 28.06 04/15/2024 10:48 AM EST documented in this encounter Progress Notes * Negin Yu CMA - 04/29/2024 10:30 AM EST 36w6d Possible loss of mucus plug * Rita Benton CRNP - 04/29/2024 10:24 AM EST ASSESSMENT assessment with Non-stress Test completed on 04/29/2024 at 36.6 weeks gestation for indication of gestational diabetes mellitus heart baseline: 140 bpm Variability: Moderate Decelerations: absent Accelerations: present Contractions: Present x2, mild NST start time: 1022 NST stop time: 1043 NST strip reviewed, interpreted, and approved by OB provider, SAHIL Zepeda . NST strip stored in clinic storage file documented in this encounter Plan of Treatment Upcoming Encounters Date Type Department Care Team (Late st Contact Info) Description 05/02/2024 8:45 AM EST Imaging Maternal Medicine Imaging, М[place] [address] [place] [address] 05/02/2024 11:00 AM EST Office Visit Gynecology/Obstetrics [facility]ila [place] [address] [place] [address] Floresita Cm PA-C [address] [place] [address] 05/06/2024 1:15 PM EST Office Visit Gynecology/Obstetrics Leila [place] [address] [place] [address] Rita Benton CRNP [address] [place] [address] Erin Lynn Stress Tests Марина [address] [place] [address] 05/07/2024 9:30 AM EST Pharmacy Pharmacy, [address] [place] [address] Clinic, Anemia [address] [place] [address] 05/09/2024 9:00 AM EST Office Visit Gynecology/Obstetrics Leila [facility] [address] [place] [address] Floresita Cm, JUANJO [address] [place] [address] Erin Lynn Stress Tests Марина [address] [place] [address] 05/13/2024 1:00 PM EST Office Visit Gynecology/Obstetrics [facility] [address] [place] [address] BackerRita CRNP [address] [place] [address] Erin Lynn Stress Tests [facility] [address] [place] [address] 05/16/2024 9:45 AM EST Office Visit Gynecology/Obstetrics Leila Ludwigs [address] [place] [address] Stacey Wei CRNP [address] [place] [address] Erin Lynn Stress Tests [facility] [address] [place] [address] Health Maintenance Due Date Last Done Comments [...] History of respiratory syncytial virus (RSV) vaccination documented in this encounter Care Teams Sourcer Relationship Specialty Start Date End Date René Valle MD [address] [place] [address] PCP - General Family Medicine 05/19/22 documented as of this encounter
--- OUTSIDE RECORDS SUMMARY | 2024-05-06 21:39 | External Medical Summary | Summary of Care ---
Author Name Unknown Organization [facility] Address [address] [facility] [place] [address] Phone [phone] Care Team Providers Care Insulator Technician Name Role Phone René Valle MD Primary Care Provider [phone] Reason for Visit * Reason Comments Return Visit Non Stress Test Encounter Details Date Type Department Care Team (Late st Contact Info) Description 04/25/2024 1:00 PM EST Office Visit Gynecology/Obstetric s [facility] [address] [place] [address] Stacey Wei CRNP [address] [place] [address] Shane Non Stress Tests Марина [address] [place] [address] Supervision of normal first , antepartum*; Depression [...] Tablet by mouth in the morning. Active NetSanity Flex System w/Device Kit Use to test blood sugars 4 times daily (fasting, 1 hour after breakfast, lunch, and dinner) 1 Kit 4 Active Bancha Delica Lancets 30G Use to test blood sugars 4 times daily (fasting, 1 hour after breakfast, lunch, and dinner) 200 Each 6 4 Active NetSanity In Vitro Strip (Glucose Blood) Use to [...] blood sugars. Sent message to patient and [facility] to schedule follow up ADAPT appointment. 04/01/24: RPM reviewed; blood sugars still elevated in the morning; follow up ADAPT scheduled 04/08. Will try to move up. 04/03/2024 Follow up ADAPT compete; elevated fastings; Ordered Lantus 10 units at bedtime 04/08/20249460-BVJ-vsgyxaj stable (2 elevated fasting blood sugars) 04/15/20241539-NMF-cbioqta stable (rare elevation) 04/22/24: RPM reviewed; stable; [...] Recommend nutrition consult with RDN (Registered Dietitian Vice President For Instruction). Lifestyle changes are also indicated including optimizing [...] money to get more. Never true 12/20/2023 [place] Depression Scale Answer Date Recorded [place] Depression Scale Total 11 10/25/2023 The thought [...] No 12/20/2023 Does the household have a [facility] source of income? (Household - for ages [...] contractions, bleeding, LOF. GBS today as well. Cork Pressing Machine Operator Documentation Provider requested electronic resources librarian. Name of electronic resources librarian: Negin ASSESSMENT assessment with Non-stress Test completed [...] Gynecology/Obstetrics Leila [place] [address] [place] [address] Rita Benton CRNP [address] [place] [address] Erin Lynn Stress Tests М[place] [address] [place] [address] 05/02/2024 8:45 AM EST Imaging Maternal Medicine Imaging, Марина Lynn [address] [place] [address] 05/02/2024 11:00 AM EST Office Visit Gynecology/Obstetrics Leila Lynn [address] [place] [address] Floresita Cm PA-C [address] [place] [address] 05/06/2024 1:15 PM EST Office Visit Gynecology/Obstetrics [facility] [address] [place] [address] BackRita mcclelland CRNP [address] [place] [address] Shane Non Stress Tests Марина [address] [place] [address] 05/07/2024 9:30 AM EST Pharmacy Pharmacy, [address] [address] 05/09/2024 9:00 AM EST Office Visit Gynecology/Obstetrics [facility] [address] [place] [address] Floresita Cm PA-C [address] [place] [address] Shane Non Stress Tests Марина [address] [place] [address] 05/13/2024 1:00 PM EST Office Visit Gynecology/Obstetrics [facility] [address] [place] [address] Rita Benton CRNP [address] [place] [address] Shane Non Stress Tests Марина [address] [place] [address] 05/16/2024 9:45 AM EST Office Visit Gynecology/Obstetrics [facility] [address] [place] [address] Stacey Wei CRNP [address] [place] [address] Lynn, Non Stress Tests Марина [address] [place] [address] Pending Results Name Type Priority Associated Diagnoses Date /Time GROUP B STREP CULTURE/PCR Lab Routine Supervision of normal first , antepartum 04/25/2024 2:01 PM EST VAGINOSIS PANEL, PCR Lab Routine Vulvar irritation 04/25/2024 2:01 PM EST Scheduled Orders Name Type Priority Associated Diagnoses Orde r Schedule GROUP B STREP CULTURE/PCR Lab Routine Supervision of normal first , antepartum Expected: 04/25/2024, Expires: 04/25/2025 US BPP W/O NON-STRESS TEST Medical Imaging Routine [...] perineum documented in this encounter Care Teams Insulator Technician Relationship Specialty Start Date End Date René Valle MD [address] [place] [address] PCP - General Family Medicine 05/19/22 documented as of this encounter
--- OUTSIDE RECORDS SUMMARY | 2024-05-06 21:39 | External Medical Summary | Summary of Care ---
Author Name Unknown Organization [facility] Address [address] [facility] [place] [address] Phone [phone] Care Team Providers Care Tip Finisher Name Role Phone René Valle MD Primary Care Provider [phone] [phone] Reason for Visit * Reason Comments Return Visit Non Stress Test Encounter Details Date Type Department Care Team (Late st Contact Info) Description 04/22/2024 9:30 AM EST Office Visit Gynecology/Obstetric s [facility] [address] [place] [address] Stacey Wei CRNP [address] [place] [address] Shane, Non Stress Tests Марина [address] [place] [address] Supervision of normal first , antepartum*; Depression complicating , antepartum; Antepartum anemia complicating ; Insulin controlled gestational diabetes mellitus (GDM) in third trimester; History of respiratory syncytial virus (RSV) vaccination Allergies Active Allergy Reactions Criticality Noted Date Comments Codeine 05/10/2022 Other Allergy (See Comments) 023 Pineapple documented as of this encounter (statuses as of 04/22/2024) Medications Ondansetron HCl 4 MG Oral Tablet [...] Tablet by mouth in the morning. Active Verixio Flex System w/Device Kit Use to test blood sugars 4 times daily (fasting, 1 hour after breakfast, lunch, and dinner) 1 Kit 4 Active Neptune Mobile Devices Delica Lancets 30G Use to test blood sugars 4 times daily (fasting, 1 hour after breakfast, lunch, and dinner) 200 Each 6 4 Active Stimwave Technologies In Vitro Strip (Glucose Blood) Use to [...] as of this encounter (statuses as of 04/22/2024) Active Problems Problem Noted Date Diagnosed Date [...] blood sugars. Sent message to patient and [facility] to schedule follow up ADAPT appointment. 04/01/24: RPM reviewed; blood sugars still elevated in the morning; follow up ADAPT scheduled 04/08. Will try to move up. 04/03/2024 Follow up ADAPT compete; elevated fastings; Ordered Lantus 10 units at bedtime 04/08/20241136-POJ-zjzplol stable (2 elevated fasting blood sugars) 04/15/20248226-SBY-wpwgzwr stable (rare elevation) 04/22/24: RPM reviewed; stable; [...] Recommend nutrition consult with RDN (Registered Dietitian Coffee Roaster Helper). Lifestyle changes are also indicated including optimizing [...] as of this encounter (statuses as of 04/22/2024) Resolved Problems Problem Noted Date Diagnosed Date Resolved Date Abnormal glucose tolerance i n mother complicating 02/29/2024 04/03/2024 Overview (02/29/2024): Failed glucola. 3hr GTT ordered documented as of this encounter (statuses as of 04/22/2024) Immunizations Name Administration Dates Next Due RSV [...] money to get more. Never true 12/20/2023 [place] Depression Scale Answer Date Recorded [place] Depression Scale Total 11 10/25/2023 The thought [...] Sign Reading Time Taken Comments Blood Pressure 124/82 04/22/2024 9:48 AM EST Pulse - - Temperature - - Respiratory Rate - - Oxygen Saturation - - Inhaled Oxygen Concentration - - Weight 70.9 kg (156 lb 3.2 oz) 04/22/2024 9:48 A M EST Height - - Body Mass Index 27.67 04/15/2024 10:48 AM EST documented in this encounter Progress Notes * Stacey Wei CRNP - 04/22/2024 11:33 AM EST ASSESSMENT assessment with Non-stress Test completed on 04/22/2024 at 35.6weeks gestation for indicationof gestational diabetes mellitus heart baseline: 135 bpm Variability: Moderate Decelerations: absent Accelerations: present Contractions: Present x3 NST start time: 0932 NST stop time: 1025 NST strip reviewed, interpreted, and approved by OB provider, SAHIL Torres . NST strip stored in clinic storage file * Negin Yu CMA - 04/22/2024 9:48 AM EST 35w6d + headaches documented in this encounter Plan of Treatment Upcoming Encounters Date Type Department Care Team (Late st Contact Info) Description 04/25/2024 1:00 PM EST Office Visit Gynecology/Obstetrics Leila Lynn [address] [place] [address] Stacey Wei CRNP [address] [place] [address] Lynn, Non Stress Tests Марина [address] [place] [address] 04/29/2024 10:15 AM EST Office Visit Gynecology/Obstetrics Leila Lynn [address] [place] [address] Backer, SAHIL Barajas [address] [place] [address] Lynn, Non Stress Tests Марина [address] [place] [address] 05/02/2024 8:45 AM EST Imaging Maternal Medicine Imaging, Марина Lynn [address] [place] [address] 05/02/2024 11:00 AM EST Office Visit Gynecology/Obstetrics [facility] [address] [place] [address] Floresita Cm PA-C [address] [place] [address] 05/06/2024 1:15 PM EST Office Visit Gynecology/Obstetrics [facility] [address] [place] [address] Rita Benton CRNP [address] [place] [address] Shane, Non Stress Tests Марина [address] [place] [address] 05/09/2024 9:00 AM EST Office Visit Gynecology/Obstetrics [facility] [address] [place] [address] Floresita Cm PA-C [address] [place] [address] Shane Non Stress Tests Марина [address] [place] [address] 05/13/2024 1:00 PM EST Office Visit Gynecology/Obstetrics [facility] [address] [place] [address] Rita Benton CRNP [address] [place] [address] Lynn, Non Stress Tests Марина [address] [place] [address] 05/16/2024 9:45 AM EST Office Visit Gynecology/Obstetrics [facility] [address] [place] [address] Stacey Wei CRNP [address] [place] [address] Lynn, Non Stress Tests Марина [address] [place] [address] Health Maintenance Due Date Last Done Comments [...] vaccination documented in this encounter Care Teams Tip Finisher Relationship Specialty Start Date End Date René Valle MD [address] [place] [address] PCP - General Family Medicine 05/19/22 documented as of this encounter
--- OUTSIDE RECORDS SUMMARY | 2024-05-06 21:40 | External Medical Summary | Summary of Care ---
Author Name Unknown Organization [facility] Address [address] [facility] [place] [address] Phone [phone] Care Team Providers Care Produce Specialist Name Role Phone René Valle MD Primary Care Provider [phone] Reason for Visit * Reason Comments Non Stress Test Encounter Details Date Type Department Care Team (Late st Contact Info) Description 04/18/2024 1:30 PM EST Office Visit Gynecology/Obstetric s [facility] [address] [place] [address] Rosi Breen PA-C [address] [place] [address] Lynn, Non Stress Tests Марина [address] [place] [address] Supervision of normal first , antepartum*; Depression complicating , antepartum; Antepartum anemia complicating ; Insulin controlled gestational diabetes mellitus (GDM) in third trimester; History of respiratory syncytial virus (RSV) vaccination Allergies Active Allergy Reactions Criticality Noted Date Comments Codeine 05/10/2022 Other Allergy (See Comments) 023 Pineapple documented as of this encounter (statuses as of 04/18/2024) Medications Ondansetron HCl 4 MG Oral Tablet [...] Tablet by mouth in the morning. Active Filter Sensing Technologiesio Flex System w/Device Kit Use to test blood sugars 4 times daily (fasting, 1 hour after breakfast, lunch, and dinner) 1 Kit 4 Active Ins[employer]ia [employer] Delica Lancets 30G Use to test blood sugars 4 times daily (fasting, 1 hour after breakfast, lunch, and dinner) 200 Each 6 4 Active [email or web address] In Vitro Strip (Glucose Blood) Use to [...] as of this encounter (statuses as of 04/18/2024) Active Problems Problem Noted Date Diagnosed Date History of respiratory syncytial virus (RSV) vac cination 04/08/2024 Overview (04/08/2024): 04/08/24 Iron deficiency anemia 03/13/2024 Insulin controlled gestation al diabetes mellitus (GDM) in third trimester 03/06/2024 Overview (04/15/2024): Diagnosed at 29 weeks Nutrition referral ordered; [...] blood sugars. Sent message to patient and [facility] to schedule follow up ADAPT appointment. 04/01/24: RPM reviewed; blood sugars still elevated in the morning; follow up ADAPT scheduled 04/08. Will try to move up. 04/03/2024 Follow up ADAPT compete; elevated fastings; Ordered Lantus 10 units at bedtime 04/08/20243449-RTS-cxaigfs stable (2 elevated fasting blood sugars) 04/15/20240733-AXL-dahpbdk stable (rare elevation) Assessment & Plan (04/04/2024 4:56 PM EST): [...] Recommend nutrition consult with RDN (Registered Dietitian Calculation Reviewer). Lifestyle changes are also indicated including optimizing [...] 02/28/2024 09:50 AM IRON BINDING CAPACITY - [facility] 446 (H) 02/28/2024 09:50 AM MCV 90.3 [...] as of this encounter (statuses as of 04/18/2024) Resolved Problems Problem Noted Date Diagnosed Date Resolved Date Abnormal glucose tolerance i n mother complicating 02/29/2024 04/03/2024 Overview (02/29/2024): Failed glucola. 3hr GTT ordered documented as of this encounter (statuses as of 04/18/2024) Immunizations Name Administration Dates Next Due RSV [...] money to get more. Never true 12/20/2023 [place] Depression Scale Answer Date Recorded [place] Depression Scale Total 11 10/25/2023 The thought [...] Sign Reading Time Taken Comments Blood Pressure 124/84 04/18/2024 1:24 PM EST Pulse - - Temperature - - Respiratory Rate - - Oxygen Saturation - - Inhaled Oxygen Concentration - - Weight 70.9 kg (156 lb 3.2 oz) 04/18/2024 1:24 P M EST Height - - Body Mass Index 27.67 04/15/2024 10:48 AM EST documented in this encounter Progress Notes * Rosi Breen PA-C - 04/18/2024 3:31 PM EST 35w2d ASSESSMENT assessment with Non-stress Test completed on 04/18/2024 at 35.2 weeks gestation for indication of gestational diabetes mellitus heart baseline: 135 bpm Variability: Moderate Decelerations: absent Accelerations: present Contractions: Present q 6-8 minutes, felt by patient -- mild, pt appears comfortable and talking during contractions NST start time: 08:09 NST stop time: 13:51 NST strip reviewed, interpreted, and approved by OB provider, Rosi Breen PA-C and Dr. Donis. NST strip stored in clinic storage file Pt reports contractions last that were similar. Presented to L&D and not in labor --sent home. Reports contractions same since. Not severely painful. Denies VB, LOF. Baby is active. Agreeable to cervical check. Store Operations Associate Documentation Provider requested senior safety support manager. Name of senior safety support manager: Negin Yu MA External os feels dilated ~ 1cm -- internal os closed/30%/-3 Advised push fluids, rest. Call if every 5 minutes apart or increase pain/intensity of contractions, VB, LOF, decreased FM. Discussed case and management with Dr. Donis in office and he as in agreement. Rosi Breen PA-C * Negin Yu CMA - 04/18/2024 1:24 PM EST 35w2d + contractions, not consistent. documented in this encounter Plan of Treatment Upcoming Encounters Date Type Department Care Team (Late st Contact Info) Description 04/19/2024 9:30 AM EST Pharmacy Pharmacy, [place] [address] [place] [address] Clinic, [facility] [address] [place] [address] 04/22/2024 9:15 AM EST Office Visit Gynecology/Obstetrics Leila Lynn [address] [place] [address] Rosi Breen PA-C [address] [place] [address] Erin Lynn Stress Tests Марина [address] [place] [address] 04/25/2024 1:00 PM EST Office Visit Gynecology/Obstetrics Leila Lynn [address] [place] [address] Stacey Wei CRNP [address] [place] [address] Erin Lynn Stress Tests Марина [address] [place] [address] 04/29/2024 10:15 AM EST Office Visit Gynecology/Obstetrics Leila Lynn [address] [place] [address] Rita Benton CRNP [address] [place] [address] Erin Lynn Stress Tests Марина [address] [place] [address] 05/02/2024 8:45 AM EST Imaging Maternal Medicine Imaging, Марина Lynn [address] [place] [address] 05/02/2024 11:00 AM EST Office Visit Gynecology/Obstetrics Leila Lynn [address] [place] [address] Floresita Cm PA-C [address] [place] [address] 05/06/2024 1:15 PM EST Office Visit Gynecology/Obstetrics Leila Lynn [address] [place] [address] Rita Benton CRNP [address] [place] [address] Erin Lynn Stress Tests Марина [address] [place] [address] 05/09/2024 9:00 AM EST Office Visit Gynecology/Obstetrics [facility] [address] [place] [address] Floresita Cm PA-C [address] [place] [address] Erin Lynn Stress Tests Марина [address] [place] [address] 05/13/2024 1:00 PM EST Office Visit Gynecology/Obstetrics Leila Lynn [address] [place] [address] Rita Benton CRNP [address] [place] [address] Erin Lynn Stress Tests [facility] [address] [place] [address] 05/16/2024 9:45 AM EST Office Visit Gynecology/Obstetrics Leila Lynn [address] [place] [address] Stacey Wei CRNP [address] [place] [address] Erin Lynn Stress Tests [facility] [address] [place] [address] Health Maintenance Due Date Last Done Comments [...] vaccination documented in this encounter Care Teams Produce Specialist Relationship Specialty Start Date End Date René Valle MD [address] [place] [address] PCP - General Family Medicine 05/19/22 documented as of this encounter
--- OUTSIDE RECORDS SUMMARY | 2024-05-06 21:40 | External Medical Summary | Summary of Care ---
Author Name Unknown Organization [facility] Address [address] [facility] [place] [address] Phone [phone] Care Team Providers Care Mold Technician Name Role Phone René Valle MD Primary Care Provider [phone] Reason for Visit * Reason Comments Non Stress Test Encounter Details Date Type Department Care Team (Late st Contact Info) Description 04/11/2024 2:00 PM EST Office Visit Gynecology/Obstetric s [facility] [address] [place] [address] Sydnee Raymond MD [address] [place] [address] Lynn, Non Stress Tests [place] [address] [place] [address] uterine contractions, antepartum, third trimester*; 34 weeks gestation of ; Insulin controlled gestational diabetes mellitus (GDM) in third trimester; Antepartum anemia complicating ; Depression complicating , antepartum; Non-reactive NST (non-stress test) Allergies Active Allergy Reactions Criticality Noted Date Comments Codeine 05/10/2022 Other Allergy (See Comments) 023 Pineapple documented as of this encounter (statuses as of 04/14/2024) Medications Ondansetron HCl 4 MG Oral Tablet [...] Tablet by mouth in the morning. Active [employer] Flex System w/Device Kit Use to test blood sugars 4 times daily (fasting, 1 hour after breakfast, lunch, and dinner) 1 Kit 4 Active [employer] Delica Lancets 30G Use to test blood sugars 4 times daily (fasting, 1 hour after breakfast, lunch, and dinner) 200 Each 6 4 Active [employer] In Vitro Strip (Glucose Blood) Use to [...] as of this encounter (statuses as of 04/14/2024) Active Problems Problem Noted Date Diagnosed Date History of respiratory syncytial virus (RSV) vac cination 04/08/2024 Overview (04/08/2024): 04/08/24 Iron deficiency anemia 03/13/2024 Insulin controlled gestation al diabetes mellitus (GDM) in third trimester 03/06/2024 Overview (04/08/2024): Diagnosed at 29 weeks Nutrition referral ordered; [...] blood sugars. Sent message to patient and [facility] PARs to schedule follow up ADAPT appointment. 04/01/24: RPM reviewed; blood sugars still elevated in the morning; follow up ADAPT scheduled 04/08. Will try to move up. 04/03/2024 Follow up ADAPT compete; elevated fastings; Ordered Lantus 10 units at bedtime 04/08/20244159-RIN-tkudfpc stable (2 elevated fasting blood sugars) Assessment & Plan (04/04/2024 4:56 PM EST): [...] Recommend nutrition consult with RDN (Registered Dietitian Lead Maintenance Technician). Lifestyle changes are also indicated including optimizing [...] as of this encounter (statuses as of 04/14/2024) Resolved Problems Problem Noted Date Diagnosed Date Resolved Date Abnormal glucose tolerance i n mother complicating 02/29/2024 04/03/2024 Overview (02/29/2024): Failed glucola. 3hr GTT ordered documented as of this encounter (statuses as of 04/14/2024) Immunizations Name Administration Dates Next Due RSV [...] money to get more. Never true 12/20/2023 [place] Depression Scale Answer Date Recorded [place] Depression Scale Total 11 10/25/2023 The thought [...] Sign Reading Time Taken Comments Blood Pressure 104/76 04/11/2024 2:02 PM EST Pulse - - Temperature - - Respiratory Rate - - Oxygen Saturation - - Inhaled Oxygen Concentration - - Weight 69.8 kg (153 lb 12.8 oz) 04/11/2024 2:02 PM EST Height 160 cm (5' 3") 04/11/2024 2:02 PM EST Body Mass Index 27.24 04/11/2024 2:02 PM EST documented in this encounter Progress Notes * Sydnee Raymond MD - 04/11/2024 2:44 PM EST Ru Lai is a 33 year old female here for her routine OB appointment at 34w2d. Patient reports contractions. Her Estimated Date of Delivery: 05/21/24 REVIEW OF SYSTEMS: She affirms movement. Denies vaginal bleeding, LOF, N/V, headaches [place] Depression Scale: No data recorded [place] suicide question and score: Score of 3 = Yes, quite often. Score of 2 = Sometimes. Score of 1 = Hardly ever No data recorded ASSESSMENT assessment with Non-stress Test completed on 04/11/2024 at 34 weeks gestation 2 days for indication of gestational diabetes mellitus heart baseline: 135 bpm Variability: Moderate Decelerations: absent Accelerations: absent Contractions: Present q 7 - 8 mins NST start time: 1408 hrs NST stop time: 1443 hrs NST strip reviewed, interpreted, and approved by OB provider, Dr. Raymond . NST strip stored in clinic storage file PHYSICAL EXAM: Filed Vitals: 04/11/24 1402 BP: 104/76 Weight: 69.8 kg (153 lb 12.8 oz) Height: 1.6 m (5' 3") +FHT 135 bpm (O24.414) Insulin controlled gestational diabetes mellitus (GDM) in third trimester Plan: US BPP W/O NON-STRESS TEST surveillance with twice weekly NSTs. (O99.019) Antepartum anemia complicating Plan: Patient is status post IV iron infusion. (O99.340, F32.A) Depression complicating , antepartum Plan: Patient states that her mood is stable. (O28.8) Non-reactive NST (non-stress test) Plan: BPP was 8/8 (Z3A.34) 34 weeks gestation of (primary encounter diagnosis) Plan: US BPP W/O NON-STRESS TEST - discussed GBS and to expect swab to be complete at next visit - labor precautions and kick counts reviewed - RTO in 1 weeks Sydnee Raymond MD documented in this encounter Miscellaneous Notes * Result Encounter Note - Lana Harman LPN - 2024 4:23 PM EST My G sent * Result Encounter Note - Sydnee Raymond MD - 2024 4:20 PM EST Please kindly inform patient that she does not have a UTI documented in this encounter Plan of Treatment Upcoming Encounters Date Type Department Care Team (Late st Contact Info) Description 04/15/2024 10:30 AM EST Office Visit Gynecology/Obstetrics [facility] [address] [place] [address] Ashutosh Donis MD [address] [place] [address] [place] Non Stress Tests [facility] [address] [place] [address] 04/18/2024 8:30 AM EST Laboratory Laboratory, [facility] [address] [facility] [place] [address] Shane Lab [facility] [address] [facility] [place] [address] 04/18/2024 1:30 PM EST Office Visit Gynecology/Obstetrics [facility] [address] [facility] [address] Rosi Breen PA-C [address] [place] [address] [place], Non Stress Tests [facility] [address] [place] [address] 04/18/2024 3:00 PM EST Telemedicine Nutrition Services [address] [place] [address] Kavon Canas, RDN [facility] [place] [address] 04/19/2024 9:30 AM EST Pharmacy Pharmacy, [place] [address] [place] [address] Clinic, [facility] [address] [place] [address] 04/22/2024 9:15 AM EST Office Visit Gynecology/Obstetrics [facility] [address] [place] [address] Rosi Breen PA-C [address] [place] [address] Erin Lynn Stress Tests [place]ина [address] [place] [address] 04/25/2024 1:00 PM EST Office Visit Gynecology/Obstetrics [facility] [address] [place] [address] Stacey Wei CRNP [address] [place] [address] Shane Non Stress Tests [place] [address] [place] [address] 04/29/2024 10:15 AM EST Office Visit Gynecology/Obstetrics [facility] [address] [place] [address] Rita Benton CRNP [address] [place] [address] Shane Non Stress Tests [place] [address] [place] [address] 05/02/2024 8:45 AM EST Imaging Maternal Medicine Imaging, [place] [place] [address] [place] [address] 05/02/2024 11:00 AM EST Office Visit Gynecology/Obstetrics [facility] [address] [place] [address] Floresita Cm PA-C [address] [place] [address] 05/06/2024 1:15 PM EST Office Visit Gynecology/Obstetrics [facility] [address] [place] [address] Rita Benton CRNP [address] [place] [address] Shane Non Stress Tests Марина [address] [place] [address] 05/09/2024 9:00 AM EST Office Visit Gynecology/Obstetrics [facility] [address] [place] [address] Floresita Cm PA-C [address] [place] [address] Shane Non Stress Tests Марина [address] [place] [address] 05/13/2024 1:00 PM EST Office Visit Gynecology/Obstetrics [facility] [address] [place] [address] Rita Benton CRNP [address] [place] [address] Shane Non Stress Tests Марина [address] [place] [address] 05/16/2024 9:45 AM EST Office Visit Gynecology/Obstetrics [facility] [address] [place] [address] Stacey Wei CRNP [address] [place] [address] Lynn, Non Stress Tests [place] [address] [place] [address] Health Maintenance Due Date Last Done Comments [...] Not on filedocumented as of this encounter Procedures Procedure Name Priority Date/Time Associated Diagnosis Comments CULTURE, URINE, QUANTITATIVE Routine 04/11/2024 3:44 PM EST uterine contractions, antepartum, third trimester documented in this encounter Results * US BPP W/O NON-STRESS TEST (04/11/2024 3:56 PM EST) Anatomical Region Laterality Modality Abdomen, Body Ultrasound 04/11/2024 4:04 PM EST Impressions 04/11/2024 4:01 PM EST IMPRESSION: 1. BPP score: 8 of 8. 2. Normal RIA. 3. Vertex presentation. Narrative 04/11/2024 4:01 PM EST EXAM: US BPP W/O NON-STRESS TEST - 04/11/2024 3:56 pm HISTORY: non-reactive nst TECHNIQUE: Sonographic examination performed. COMPARISON: US BPP W_O NON-STRESS TEST, ACC: [id number], dated 2024-04-08 09:34:34; [facility] US PREG FOLLOW UP EACH FETUS, ACC: [id number], dated 2024-04-04 08:32:13; [facility] US BIOPHYSICAL WO NON STRESS, ACC: [id number], dated 2024-04-04 08:32:13; [facility] US MATERNAL 1ST FETUS, ACC: [id number], dated 2024-03-18 07:41:33; US PREG LIMITED 1 OR MORE FETUSES, ACC: [id number], dated 2024-01-31 08:21:01; US PREG LIMITED 1 OR MORE FETUSES, ACC: [id number], dated 2024-01-17 08:21:35; US PREG SINGLE_1ST GEST, 14 WEEKS OR LATER, ACC: [id number], dated 2024-01-02 09:05:02; US PELVIS TRANS-VAGINAL OB, ACC: [id number], dated 2023-10-25 09:51:48 FINDINGS: GENERAL Based on initial available ultrasound expected current mean menstrual age 34 weeks 4 days yielding EDYTA 05/19/2024 : Andrews Presentation: Cephalic/vertex heart rate: 133 bpm Amniotic Fluid: Qualitatively within normal limits RIA: 16.4 cm which is between the 50th and 75th percentiles for this stage of . BIOPHYSICAL PROFILE breathing movement: 2 Gross body movement: 2 tone: 2 Qualitative AFV: 2 Total BPP score: 8 of 8. Procedure Note Roly Gilbert MD - 04/11/2024 EXAM: US BPP W/O NON-STRESS TEST - 04/11/2024 3:56 pm HISTORY: non-reactive nst TECHNIQUE: Sonographic examination performed. COMPARISON: US BPP W_O NON-STRESS TEST, ACC: [id number], dated [id number]:34:34; [facility] US PREG FOLLOW UP EACH FETUS, ACC: [id number], dated :32:13; [facility] US BIOPHYSICAL WO NON STRESS, ACC: [id number], dated :32:13; [facility] US MATERNAL 1ST FETUS, ACC: [id number], dated :41:33; US PREG LIMITED 1 OR MORE FETUSES, ACC: [id number], dated :21:01; US PREG LIMITED 1 OR MORE FETUSES, ACC: [id number], dated :21:35; US PREG SINGLE_1ST GEST, 14 WEEKS OR LATER, ACC: [id number], [id number] 09:05:02; US PELVIS TRANS-VAGINAL OB, ACC: [id number], dated 2023-10-25 09:51:48 FINDINGS: GENERAL Based on initial available ultrasound expected current mean menstrual age34 weeks 4 days yielding EDYTA 05/19/2024 : Andrews Presentation: Cephalic/vertex heart rate: 133 bpm Amniotic Fluid: Qualitatively within normal limits RIA: 16.4 cm which is between the 50th and 75th percentiles for this stageof . BIOPHYSICAL PROFILE breathing movement: 2 Gross body movement: 2 tone: 2 Qualitative AFV: 2 Total BPP score: 8 of 8. IMPRESSION IMPRESSION: 1. BPP score: 8 of 8. 2. Normal RIA. 3. Vertex presentation. Sydnee Raymond MD RAD ULTRASOUND Final Result * CULTURE, URINE, QUANTITATIVE (04/11/2024 3:44 PM EST) Culture Growth No significant growth 2024 4:17 PM EST LAB[facility] Urine Urine specimen obtained by clean catch procedure / Unknown Non-blood Collection / Unknown 04/11/2024 3:44 PM EST 04/11/2024 3:44 PM EST Sydnee Raymond MD LAB MICRO - GENERAL O RDERABLES Final Result [facility] [address] [place] [address] documented in this encounter Visit Diagnoses Diagnosis Supervision of [...] ultrasonics 33 weeks gestation of state, incidental uterine contractions, antepartum, third trimester- Primary 34 weeks gestation of state, incidental Insulin controlled gestational diabetes mellitus (GDM) in third trimester Antepartum anemia complicating Anemia, antepartum Depression complicating , antepartum Mental disorders of mother, antepartum Non-reactive NST (non-stress test) Abnormal findings on screening 34 weeks gestation of state, incidental Insulin controlled gestational diabetes mellitus (GDM) in third trimester documented in this encounter Care Teams Mold Technician Relationship Specialty Start Date End Date René Valle MD [address] [place] [address] PCP - General Family Medicine 05/19/22 documented as of this encounter
--- OUTSIDE RECORDS SUMMARY | 2024-05-06 21:40 | External Medical Summary ---
Author Name Unknown Address Unknown Organization K01:LABORATORY [facility] - [facility] [place] [address] Laboratory Report Ordering Provider Test Date Status TISH TREJO 04/18/2024 13:00:37 Final Observation Date Value Abnormality Reference (Units ) Status Retic, % (auto) 04/18/2024 13:00:37 2.85 Above high normal 0.80-1.90 (%) Final Reticulocytes, Absolute 04/18/2024 13:00:37 117.4 Above high normal 31.3-100.1 (K/uL) Final Reticulocyte fraction, immature 04/18/2024 13:00:37 20.2 2.5-20.6 (%) Final Reticulocyte HGB 04/18/2024 13:00:37 31.6 29.7-37.4 (pg) Final Performing Location LABORATORY [facility] - [facility] [place] [address]
--- OUTSIDE RECORDS SUMMARY | 2024-05-06 21:40 | External Medical Summary ---
Author Name Unknown Address Unknown Organization K01:LABORATORY [facility] - [facility] [address] [place] [address] Laboratory Report Ordering Provider Test Date Status TISH TREJO 04/18/2024 13:00:37 Final Observation Date Value Abnormality Reference (Units ) Status WBC, Total 04/18/2024 13:00:37 11.68 Above high normal 4.00-10.80 (K/uL) Final RBC 04/18/2024 13:00:37 4.12 3.85-5.15 (M/uL) Final Hemoglobin 04/18/2024 13:00:37 11.9 Below low normal 12.0-15.3 (g/dL) Final HCT 04/18/2024 13:00:37 37.2 36.0-45.2 (%) Final MCV 04/18/2024 13:00:37 90.3 81.5-97.5 (fL) Final MCH 04/18/2024 13:00:37 28.9 27.0-34.0 (pg) Final MCHC 04/18/2024 13:00:37 32.0 32.0-36.0 (g/dL) Final RDW 04/18/2024 13:00:37 14.9 11.5-15.5 (%) Final Platelets 04/18/2024 13:00:37 297 140-400 (K/uL) Final MPV 04/18/2024 13:00:37 9.1 6.6-11.1 (fL) Final Nucleated erythrocytes/100 leukocytes [Ratio] in Blood by Automated count 04/18/2024 13:00:37 0 <=0 (/100 WBCs) Final Performing Location LABORATORY [facility] [place] - [address] [place] [address]
--- OUTSIDE RECORDS SUMMARY | 2024-05-06 21:40 | External Medical Summary | Summary of Care ---
Author Name Unknown Organization [facility] Address [address] [facility] [place] [address] Phone [phone] Care Team Providers Care Vacuum Repairer Name Role Phone René Valle MD Primary Care Provider [phone] Reason for Visit * Reason Comments Outpatient Testing Encounter Details Date Type Department Care Team (Late st Contact Info) Description 04/18/2024 1:00 PM EST Laboratory Laboratory, [facility] [address] [place] [address] [facility] [address] [place] [address] Iron deficiency anemia, unspecified iron deficiency anemia type Allergies Active Allergy Reactions Criticality Noted Date [...] Tablet by mouth in the morning. Active [employer] Flex System w/Device Kit Use to test blood sugars 4 times daily (fasting, 1 hour after breakfast, lunch, and dinner) 1 Kit 4 Active [employer] Delica Lancets 30G Use to test blood sugars 4 times daily (fasting, 1 hour after breakfast, lunch, and dinner) 200 Each 6 4 Active [employer] In Vitro Strip (Glucose Blood) Use to [...] blood sugars. Sent message to patient and [facility] PARs to schedule follow up ADAPT appointment. 04/01/24: RPM reviewed; blood sugars still elevated in the morning; follow up ADAPT scheduled 04/08. Will try to move up. 04/03/2024 Follow up ADAPT compete; elevated fastings; Ordered Lantus 10 units at bedtime 04/08/20245692-ELI-vbezoxm stable (2 elevated fasting blood sugars) 04/15/20249885-FGN-ccqaukv stable (rare elevation) Assessment & Plan (04/04/2024 [...] Recommend nutrition consult with RDN (Registered Dietitian Bonus Clerk). Lifestyle changes are also indicated including optimizing [...] money to get more. Never true 12/20/2023 [place] Depression Scale Answer Date Recorded Sigel Depression Scale Total 11 10/25/2023 The thought [...] on file documented as of this encounter Plan of Treatment Upcoming Encounters Date Type Department Care Team (Late st Contact Info) Description 04/18/2024 1:30 PM EST Office Visit Gynecology/Obstetric s [facility] [address] [place] [address] Rosi Breen PA-C [address] [place] [address] Erin Lynn Stress Tests [place] [address] [place] [address] Supervision of normal first , antepartum*; Depression complicating , antepartum; Antepartum anemia complicating ; Insulin controlled gestational diabetes mellitus (GDM) in third trimester; History of respiratory syncytial virus (RSV) vaccination 04/19/2024 9:30 AM EST Pharmacy Pharmacy, [place] [address] [facility] [place] [id number] Clinic, [facility] [address] [place], [place] [id number] 04/22/2024 9:15 AM EST Office Visit Gynecology/Obstetric s [facility] [address] [place] [address] Rosi Breen PA-C [address] [place] [address] Shane, Non Stress Tests М[place] [address] [place] [address] 04/25/2024 1:00 PM EST Office Visit Gynecology/Obstetric s [facility] [address] [place] [address] Stacey Wei CRNP [address] [place] [address] Shane Non Stress Tests [place] [address] [place] [address] 04/29/2024 10:15 AM EST Office Visit Gynecology/Obstetric s [facility] [address] [place] [address] Rita Benton CRNP [address] [place] [address] Shane Non Stress Tests [place] [address] [place] [address] 05/02/2024 8:45 AM EST Imaging Maternal Medicine Imaging, [place] [address] [place] [address] 05/02/2024 11:00 AM EST Office Visit Gynecology/Obstetric s [facility] [place] [address] [place] [address] Floresita Cm PA-C [address] [place] [address] 05/06/2024 1:15 PM EST Office Visit Gynecology/Obstetric s [facility] [address] [place] [address] Rita Benton CRNP [address] [place] [address] Lynn, Non Stress Tests М[place] [address] [place] [address] 05/09/2024 9:00 AM EST Office Visit Gynecology/Obstetric s [facility] [address] [place] [address] Floresita Cm PA-C [address] [place] [address] Lynn, Non Stress Tests [place] [address] [place] [address] 05/13/2024 1:00 PM EST Office Visit Gynecology/Obstetric s [facility] [address] [place] [address] Rita Benton CRNP [address] [place] [address] Lynn, Non Stress Tests Марина [address] [place] [address] 05/16/2024 9:45 AM EST Office Visit Gynecology/Obstetric s [facility] [address] [place] [address] Stacey Wei CRNP [address] [place] [address] Lynn, Non Stress Tests М[place] [address] [place] [address] Pending Results Name Type Priority Associated Diagnoses Date /Time CBC WITH WBC DIFFERENTIAL Lab Routine Iron deficiency anemia, unspecified iron deficiency anemia type 04/18/2024 1:00 PM EST IRON SCREEN, INCLUDING TIBC Lab Routine Iron deficiency anemia, unspecified iron deficiency anemia type 04/18/2024 1:00 PM EST FERRITIN Lab Routine Iron deficiency anemia, unspecified iron deficiency anemia type 04/18/2024 1:00 PM EST RETICULOCYTE PANEL Lab Routine Iron deficiency anemia, unspecified iron deficiency anemia type 04/18/2024 1:00 PM EST FOLIC ACID Lab Routine Iron deficiency anemia, unspecified iron deficiency anemia type 04/18/2024 1:00 PM EST VITAMIN B12 Lab Routine Iron deficiency anemia, unspecified iron deficiency anemia type 04/18/2024 1:00 PM EST CBC Lab Routine Iron deficiency anemia, unspecified iron deficiency anemia type 04/18/2024 1:00 PM EST DIFFERENTIAL, AUTOMATED Lab Routine Iron deficiency anemia, unspecified iron deficiency anemia type 04/18/2024 1:00 PM EST Health Maintenance Due Date Last Done Comments [...] History of respiratory syncytial virus (RSV) vaccination Iron deficiency anemia, unspecified iron deficiency anemia type documented in this encounter Care Teams Vacuum Repairer Relationship Specialty Start Date End Date René Valle MD [address] [place] [address] PCP - General Family Medicine 05/19/22 documented as of this encounter
--- OUTSIDE RECORDS SUMMARY | 2024-05-06 21:40 | External Medical Summary ---
Author Name Unknown Address Unknown Organization K01:LABORATORY [facility] - [address] [place] [address] Laboratory Report Ordering Provider Test Date Status TISH TREJO 04/18/2024 13:00:37 Final Observation Date Value Abnormality Reference (Units ) Status Vitamin B12 04/18/2024 13:00:37 [phone] (pg/mL) Final Performing Location LABORATORY [facility] - [address] [place] [address]
--- OUTSIDE RECORDS SUMMARY | 2024-05-06 21:40 | External Medical Summary ---
Author Name Unknown Address Unknown Organization K01:[facility] [place] [address] [place] [address] Laboratory Report Ordering Provider Test Date Status TISH TREJO 04/18/2024 13:00:37 Final Observation Date Value Abnormality Reference (Units ) Status Ferritin 04/18/2024 13:00:37 510 Above high normal 13 -150 (ng/mL) Final Performing Location [facility] [place] [address] [place] [address]
--- OUTSIDE RECORDS SUMMARY | 2024-05-06 21:40 | External Medical Summary ---
Author Name Unknown Address Unknown Organization K01:LAB[facility]ATORY [facility] - [address] [place] [id number] Laboratory Report Ordering Provider Test Date Status RODOKAMINI 04/11/2024 15:44:27 Final Observation Date Value Abnormality Reference (Units) Status Bacteria identified in Specimen by Culture 04/11/2024 15:44:27 No significant growth Final Test: Culture, Urine, Quant itative
Specimen Source: Urine, Clean Catch
Specimen Type: Urine
Specimen Date: 04/11/2024 1544
Result Date: 2024 1617
Result Status: Final result
Resulting Lab: LABORATORY [facility]
[address]
[place] [address]

CULTURE

No significant growth

null Performing Location LABORATORY [facility] - [address] [facility] [address]
--- OUTSIDE RECORDS SUMMARY | 2024-05-06 21:40 | External Medical Summary | Summary of Care ---
Author Name Unknown Organization [facility] Address [address] [facility] [place] [address] Phone [phone] Care Team Providers Care Lumber Buyer Name Role Phone René Valle MD Primary Care Provider [phone] Reason for Visit * Reason Comments Return Visit Encounter Details Date Type Department Care Team (Late st Contact Info) Description 04/15/2024 10:30 AM EST Office Visit Gynecology/Obstetric s [facility] [address] [place] [address] Ashutosh Donis MD [address] [place] [address] Shane, Non Stress Tests Марина [address] [place] [address] Supervision of normal first , antepartum*; Depression complicating , antepartum; Antepartum anemia complicating ; Insulin controlled gestational diabetes mellitus (GDM) in third trimester; History of respiratory syncytial virus (RSV) vaccination Allergies Active Allergy Reactions Criticality Noted Date Comments Codeine 05/10/2022 Other Allergy (See Comments) 023 Pineapple documented as of this encounter (statuses as of 04/15/2024) Medications Ondansetron HCl 4 MG Oral Tablet [...] Tablet by mouth in the morning. Active Polisofiaio Flex System w/Device Kit Use to test blood sugars 4 times daily (fasting, 1 hour after breakfast, lunch, and dinner) 1 Kit 4 Active [place] Depollution Delica Lancets 30G Use to test blood sugars 4 times daily (fasting, 1 hour after breakfast, lunch, and dinner) 200 Each 6 4 Active Novast In Vitro Strip (Glucose Blood) Use to [...] as of this encounter (statuses as of 04/15/2024) Active Problems Problem Noted Date Diagnosed Date [...] blood sugars. Sent message to patient and [facility] PARs to schedule follow up ADAPT appointment. 04/01/24: RPM reviewed; blood sugars still elevated in the morning; follow up ADAPT scheduled 04/08. Will try to move up. 04/03/2024 Follow up ADAPT compete; elevated fastings; Ordered Lantus 10 units at bedtime 04/08/20244256-CJR-zpqylld stable (2 elevated fasting blood sugars) 04/15/20249302-CUX-avvbajv stable (rare elevation) Assessment & Plan (04/04/2024 [...] Recommend nutrition consult with RDN (Registered Dietitian Consumer Attorney). Lifestyle changes are also indicated including optimizing [...] as of this encounter (statuses as of 04/15/2024) Resolved Problems Problem Noted Date Diagnosed Date Resolved Date Abnormal glucose tolerance i n mother complicating 02/29/2024 04/03/2024 Overview (02/29/2024): Failed glucola. 3hr GTT ordered documented as of this encounter (statuses as of 04/15/2024) Immunizations Name Administration Dates Next Due RSV [...] money to get more. Never true 12/20/2023 Morgan Depression Scale Answer Date Recorded Morgan Depression Scale Total 11 10/25/2023 The thought [...] Sign Reading Time Taken Comments Blood Pressure 112/68 04/15/2024 10:48 AM EST Pulse - - Temperature - - Respiratory Rate - - Oxygen Saturation - - Inhaled Oxygen Concentration - - Weight 70.3 kg (155 lb) 04/15/2024 10:48 AM EST Height 160 cm (5' 3") 04/15/2024 10:48 AM EST Body Mass Index 27.46 04/15/2024 10:48 AM EST documented in this encounter Progress Notes * Ashutosh Donis MD - 04/15/2024 11:46 AM EST NST Only ASSESSMENT assessment with Non-stress Test completed on 04/15/2024 at 34weeks gestation for indication of gestational diabetes mellitus heart baseline: 150 bpm Variability: Moderate Decelerations: absent Accelerations: present Contractions: None NST start time: 11:00 NST stop time: 11:30 NST strip reviewed, interpreted, and approved by OB provider, ;. NST strip stored in clinic storage file documented in this encounter Plan of Treatment Upcoming Encounters Date Type Department Care Team (Late st Contact Info) Description 04/18/2024 8:30 AM EST [facility] [address] [place] [phone] Shane [facility] [address] [place] [address] 04/18/2024 1:30 PM EST [facility] [address] [place] [address] Rosi Breen PA-C [address] [place] [address] Shane, Non Stress Tests Марина [address] [place] [address] 04/19/2024 9:30 AM EST Pharmacy Pharmacy, [place] [address] [place] [address] Clinic, [facility] [address] [place] [address] 04/22/2024 9:15 AM EST [facility] [address] [place] [address] Rosi Breen PA-C [address] [place] [address] Shane Non Stress Tests Марина [address] [place] [address] 04/25/2024 1:00 PM EST Office Visit Gynecology/Obstetrics Leila Lynn [address] [place] [address] Stacey Wei CRNP [address] [place] [address] Shane Non Stress Tests Марина [address] [place] [address] 04/29/2024 10:15 AM EST Office Visit Gynecology/Obstetrics Leila Lynn [address] [place] [address] Rita Benton CRNP [address] [place] [address] Erin Lynn Stress Tests Марина [address] [place] [address] 05/02/2024 8:45 AM EST Imaging [facility]aternal Medicine Imaging, Марина Lynn [address] [place] [address] 05/02/2024 11:00 AM EST Office Visit Gynecology/Obstetrics Leila Lynn [address] [place] [address] Floresita Cm PA-C [address] [place] [address] 05/06/2024 1:15 PM EST Office Visit Gynecology/Obstetrics Leila Lynn [address] [place] [address] Rita Benton CRNP [address] [place] [address] Shane Non Stress Tests Марина [address] [place] [address] 05/09/2024 9:00 AM EST Office Visit Gynecology/Obstetrics Leila Lynn [address] [place] [address] Floresita Cm PA-C [address] [place] [address] Shane Non Stress Tests Марина [address] [place] [address] 05/13/2024 1:00 PM EST Office Visit Gynecology/Obstetrics Leila Lynn [address] [place] [address] Rita Benton CRNP [address] [place] [address] Shane Non Stress Tests Марина [address] [place] [address] 05/16/2024 9:45 AM EST Office Visit Gynecology/Obstetrics Leila Lynn [address] [place] [address] Stacey Wei CRNP [address] [place] [address] Erin Lynn Stress Tests Марина [address] [place] [address] Health Maintenance Due Date Last Done Comments Depression Monitoring 2004 Hepatitis B Vaccine (1 of 3 - 19+ 3-dose series) 2011 COVID-19 Vaccine (2023-2 5 season) 2023 04/04/2022 Pap Smear 05/23/2026 [...] vaccination documented in this encounter Care Teams Lumber Buyer Relationship Specialty Start Date End Date René Valle MD [address] [place] [address] PCP - General Family Medicine 05/19/22 documented as of this encounter
--- OUTSIDE RECORDS SUMMARY | 2024-05-06 21:40 | External Medical Summary ---
Author Name Unknown Address Unknown Organization K01:[facility] [place] [address] [facility] [place] [address] Laboratory Report Ordering Provider Test Date Status TISH TREJO 04/18/2024 13:00:37 Final Observation Date Value Abnormality Reference (Units ) Status SYNC LEUKOCYTES IN BLOOD BY AUTOMATED COUNT 04/18/2024 13:00:37 11.68 Above high normal 4.00-10.80 (K/uL) Final Segs 04/18/2024 13:00:37 77.4 Above high normal 40.0-75.0 (%) Final Lymphs % 04/18/2024 13:00:37 14.9 Below low normal 18.0-42.0 (%) Final Monos 04/18/2024 13:00:37 5.4 1.0-11.0 (%) Final Eosinophils 04/18/2024 13:00:37 1.1 0.0-6.0 (%) Final Basos 04/18/2024 13:00:37 0.3 0.0-2.0 (%) Final Immature Granulocyte, Percent 04/18/2024 13:00:37 0.9 0.0-2.0 (%) Final Absolute Segs 04/18/2024 13:00:37 9.04 Above high normal 1.80-7.70 (K/uL) Final Lymphs, absolute 04/18/2024 13:00:37 1.74 1.00-4.80 (K/ul) Final Monos, Abs 04/18/2024 13:00:37 0.63 0.00-1.10 (K/uL) Final Eos, Abs 04/18/2024 13:00:37 0.13 0.00-0.70 (K/uL) Final Basos, Abs 04/18/2024 13:00:37 0.04 0.00-0.20 (K/uL) Final Immature Granulocytes, Number 04/18/2024 13:00:37 0.10 0.00-0.20 (K/uL) Final Performing Location [facility] [place] [facility] [address] [facility] [address]
--- OUTSIDE RECORDS SUMMARY | 2024-05-06 21:40 | External Medical Summary ---
Author Name Unknown Address Unknown Organization K01:[facility] [place] [address] [place] [address] Laboratory Report Ordering Provider Test Date Status TISH TREJO 04/18/2024 13:00:37 Final Observation Date Value Abnormality Reference (Units ) Status Folic Acid 04/18/2024 13:00:37 10.0 >4.5 (ng/ mL) Final Performing Location [facility] [place] [address] [place] [address]
[2024-05-07] MEDS ORDERED: LIDOCAINE 1% LOCAL 20 ML VIAL INFIL PRN (00:04)
[2024-05-07 00:46] LABS: Hematocrit (blood only) 35.7 % (37.0-47.0); Hemoglobin 12.1 g/dl (12.0-16.0); Mean Corpuscular Hemoglobin 28.1 pg (25.0-34.0); Mean Corpuscular Hgb Conc 33.9 g/dL (32.0-36.0); Mean Platelet Volume 9.1 fL (9.4-12.4); Platelet Count 282 K/uL (130-400); RDW Coefficient of Variation 14.7 % (11.5-14.5); RDW Standard Deviation 44.3 fL (36.4-46.3); White Blood Count 11.92 K/ul (4.8-10.8)
[2024-05-07 00:51] LABS: Albumin Globulin Ratio 1.1 (0.9-2); Albumin Level 3.3 gm/dl (3.4-5.0); BUN Creatinine Ratio 13.8 (10-20); Bilirubin,Total 0.3 mg/dl (0.2-1.0); Calcium 8.5 mg/dl (8.6-10.3); Creatinine Clr Calc Pharmacy 96.4 ml/min; Globulin 3.1 gm/dl (2.5-4.0); Potassium 3.9 mmol/L (3.5-5.1); Total Protein 6.4 gm/dl (6.0-8.3)
[2024-05-07] MEDS ORDERED: SODIUM CHLORIDE 0.9% PF INJ 10 ML VIAL EPI PRN (00:52)
[2024-05-07] MEDS ORDERED: BUPIVACAINE 0.25% PF 30 ML VIAL EPI PRN (00:52)
[2024-05-07] MEDS ORDERED: diphenhydrAMINE 50 MG/ML VIAL IV PRN (00:52)
[2024-05-07] MEDS ORDERED: ePHEDrine sulfate 50 MG/ML AMP IV PRN (00:52)
[2024-05-07] MEDS ORDERED: LIDOCAINE 2% MPF LOCAL 5 ML VIAL EPI PRN (00:52)
[2024-05-07] MEDS ORDERED: NALOXONE HCL 1 MG in SODIUM CHLORIDE 0.9% 1,000 ML IV PRN (00:52)
[2024-05-07] MEDS ORDERED: fentaNYL citrate PF 100 MCG/2 ML VIAL EPI PRN (00:52)
[2024-05-07] MEDS ORDERED: NALBUPHINE HCL INJ 10 MG/ML AMP IV PRN (00:52)
[2024-05-07] MEDS ORDERED: fentANYL 2 MCG/ML BUPIVacaine 0.125%-NSS 100ML BAG EPI PRN (00:52)
[2024-05-07] MEDS ORDERED: NALOXONE HCL 0.4 MG/1 ML VIAL/CARP IV PRN (00:52)
[2024-05-07] MEDS ORDERED: ROPIVACAINE 0.5% PF 5 MG/ML 20 ML VIAL EPI PRN (00:52)
--- NOTE | 2024-05-07 00:52 | Anesthesiology Consultation ---
Date of Service May 07, 2024 Assessment & Plan Chart Review Chart Review: Acceptable Risk for Labor Epidural Consults Requested none History Height/Weight Height: 5 ft 3 in Weight: 72.575 kg Allergies Allergy/AdvReac Type Severity Reaction Status Date / Time pineapple Allergy Anaphylaxis Verified 04/12/24 00:59 codeine AdvReac Headache Verified 04/12/24 00:59 Medications Home Medications Medication Instructions Recorded Confirmed Last Taken bupropion HCl 150 mg tablet,12 hr 150 mg PO DAILY 04/12/24 05/06/24 05/06/24 sustained-release (Wellbutrin SR) insulin glargine 100 unit/mL (3 10 unit subcut HS 04/12/24 05/06/24 1 Day Ago mL) subcutaneous pen (Lantus ~05/05/24 Solostar U-100 Insulin) omeprazole 20 mg capsule,delayed 20 mg PO DAILY 04/12/24 05/06/24 05/06/24 release sertraline 100 mg tablet (Zoloft) 200 mg PO HS 04/12/24 05/06/24 1 Day Ago ~05/05/24 Active Medications Generic Name Dose Route Start Last Admin Trade Name Freq PRN Reason Stop Dose Admin Sodium Chloride 1,000 mls @ 125 mls/hr 05/06/24 21:00 05/07/24 00:26 Nss IV 05/07/24 20:59 999 mls/hr .Q8H ANDERSON Administration Past Medical History Medical History Insulin controlled gestational diabetes mellitus (GDM) during History of HPV infection ADHD Depression with anxiety Past Surgical History Surgical History [place] teeth removed Hx of appendectomy Social History Smoking Status: Former smoker Do You Dip or Chew Tobacco: No Hx Alcohol Use: No Hx Substance Use: Yes substance use type: marijuana Substance Use Type Other:: Smoked Marijuana and edible medical marijuana Last Used Substance Other:: May 2023 Physical Exam Vital Signs Last Vital Signs Temp 36.6 C 05/06/24 21:30 Pulse 72 05/06/24 19:00 Resp 18 05/06/24 21:30 BP 99/65 L 05/06/24 19:00 Testing Laboratory Results 05/07/24 00:15 05/07/24 00:22
--- NOTE | 2024-05-07 00:54 | Obstetrical Progress Note ---
Date of Service May 07, 2024 Subjective Late entry from midnight: patient is reevaluated. She got relief from Stadol and slept for about 40 minutes and then woke up with more pain. She caused her pain 8-9 out of 10 and she is requesting epidural for pain. vital signs stable afebrile, heart rate category 1, Contractions every 5 to 7 minutes, Vaginal exam cervix is 3 to 4 cm, 80% effaced, head is -1 station with a bulging tight amniotic bag, IUP at 38 weeks with irregular but painful contractions and cervical change, patient is requesting epidural for pain, Plan to admit, monitor, labs, epidural for pain and reevaluate for cervical change possible augmentation with oxytocin if needed, All questions were answered. Results & Data Vital Signs (Past 12 Hours) Vital Signs Temp Pulse Resp BP 05/06/24 21:30 18 05/06/24 21:30 36.6 C 18 05/06/24 19:00 36.6 C 18 05/06/24 19:00 36.6 C 72 18 99/65 L 05/06/24 16:47 86 101/56 L 05/06/24 16:16 80 109/68 05/06/24 15:06 36.9 C 95 H 17 120/79 05/06/24 14:52 95 H 120/79 05/06/24 14:50 17 05/06/24 14:50 36.9 C 17
--- OUTSIDE RECORDS SUMMARY | 2024-05-07 00:57 | External Medical Summary | Summary of Care ---
Author Name Unknown Organization [facility] Address [address] [place] [facility] [place] [address] Phone [phone] Care Team Providers Care Statistics Teacher Name Role Phone René Valle MD Primary Care Provider [phone] Reason for Visit * Reason Comments Anemia Follow-Up Encounter Details Date Type Department Care Team (Late st Contact Info) Description 05/06/2024 10:15 AM [facility] Pharmacy, [place] [address] [place], [place] [id number] Clinic, Anemia [address] [place], [place] [phone] Iron deficiency anemia, unspecified iron deficiency anemia type* Allergies Active Allergy Reactions Criticality Noted Date Comments Codeine 05/10/2022 Other Allergy (See Comments) 023 Pineapple Penicillins Rash Low 01/06/2013 Pineapple 01/07/2023 documented as of this encounter (statuses as of 05/06/2024) Medications Ondansetron HCl 4 MG Oral Tablet [...] Tablet by mouth in the morning. Active Conformity Verio Flex System w/Device Kit Use to test blood sugars 4 times daily (fasting, 1 hour after breakfast, lunch, and dinner) 1 Kit 4 Active Tobosu.comTouch Delica Lancets 30G Use to test blood sugars 4 times daily (fasting, 1 hour after breakfast, lunch, and dinner) 200 Each 6 4 Active Tobosu.comToCloutexio In Vitro Strip (Glucose Blood) Use to [...] as of this encounter (statuses as of 05/06/2024) Active Problems Problem Noted Date Diagnosed Date History of respiratory syncytial virus (RSV) vac cination 04/08/2024 Overview (04/08/2024): 04/08/24 Iron deficiency anemia 03/13/2024 Insulin controlled gestation al diabetes mellitus (GDM) in third trimester 03/06/2024 Overview (05/06/2024): Diagnosed at 29 weeks Nutrition referral ordered; [...] blood sugars. Sent message to patient and [facility] to schedule follow up ADAPT appointment. 04/01/24: RPM reviewed; blood sugars still elevated in the morning; follow up ADAPT scheduled 04/08. Will try to move up. 04/03/2024 Follow up ADAPT compete; elevated fastings; Ordered Lantus 10 units at bedtime 04/08/20240237-DDB-naetqtv stable (2 elevated fasting blood sugars) 04/15/[id number]-KBC-fgacbkq stable (rare elevation) 04/22/24: RPM reviewed; stable; continue Lantus 10 units at bedtime 04/29/20243418-BCS-yzvbcybfc via hemal and messaging. Stable 05/06/20247174-RHI-qtssettjs via hemal and messaging. Stable Assessment & [...] Recommend nutrition consult with RDN (Registered Dietitian Flexographic Printing Machinist). Lifestyle changes are also indicated including optimizing [...] as of this encounter (statuses as of 05/06/2024) Resolved Problems Problem Noted Date Diagnosed Date Resolved Date Abnormal glucose tolerance i n mother complicating 02/29/2024 04/03/2024 Overview (02/29/2024): Failed glucola. 3hr GTT ordered documented as of this encounter (statuses as of 05/06/2024) Immunizations Name Administration Dates Next Due RSV [...] money to get more. Never true 12/20/2023 Higden Depression Scale Answer Date Recorded Higden Depression Scale Total 11 10/25/2023 The thought [...] as of this encounter Progress Notes * Floresita Ramirez, [facility] - 05/06/2024 10:15 AM EST Patient Phone Numbers [email or web address] Called patient to review labs from 04/18- attempt #2. No answer, left message with results and instructions as below as well as call back number for any questions. Asked patient to please return our call if she is having any anemia sx or would like to discuss results further. GA: 37w6d Estimated Date of Delivery: 05/21/24 Hgb: 11.9 g/dL TSAT: 16 % Ferritin: 510 ng/mL B12: 453 pg/mL FA: 10.0 ng/mL Patient is s/p Infed 1gm x 1 on 03/21/24. Hgb is within target range for the third trimester. Iron studies within target range. B12 and folicacid within target range. Plan: No anemia pharmacological intervention at this time. Given adequacy of anemia labs, as well as proximity to delivery, Anemia Clinic will sign off at this time. Please re-refer if needed. Thank you for involving us in this patient's care. Thanks, Floresita Ramirez, PharmD Clinical Pharmacist - Record Searcher [facility] (P: [phone]) 05/06/2024 11:19 AM documented in this encounter Plan of Treatment Upcoming Encounters Date Type Department Care Team (Late st Contact Info) Description 05/06/2024 1:15 PM EST Office Visit Gynecology/Obstetrics [facility] [address] [place] [address] Rita Benton CRNP [address] [place] [address] Shane Non Stress Tests Марина [address] [place] [address] 05/09/2024 9:00 AM EST Office Visit Gynecology/Obstetrics [facility] [address] [place] [address] Floresita Cm PA-C [address] [place] [address] Shane Non Stress Tests Марина [address] [place] [address] 05/13/2024 1:00 PM EST Office Visit Gynecology/Obstetrics [facility] [address] [place] [address] Rtia Benton CRNP [address] [place] [address] Shane Non Stress Tests Марина [address] [place] [address] 05/16/2024 9:45 AM EST Office Visit Gynecology/Obstetrics Leila Lynn [address] [place] [address] Stacey Wei CRNP [address] [place] [address] Shane, Non Stress Tests Марина [address] [place] [address] Health Maintenance Due Date Last Done Comments [...] Primary documented in this encounter Care Teams Statistics Teacher Relationship Specialty Start Date End Date René Valle MD [address] [place] [address] PCP - General Family Medicine 05/19/22 documented as of this encounter
--- OUTSIDE RECORDS SUMMARY | 2024-05-07 00:57 | External Medical Summary | Summary of Care ---
Author Name Unknown Organization [facility] Address [address] [facility] [place] [address] Phone [phone] Care Team Providers Care Pediatric Dermatologist Name Role Phone René Valle MD Primary Care Provider [phone] Encounter Details Date Type Department Care Team (Late st Contact Info) Description 05/06/2024 1:15 PM EST Office Visit Gynecology/Obstetric s [facility] [address] [place] [address] BackRita mcclelland CRNP [address] [place] [address] Shane, Non Stress Tests Марина [address] [place] [address] Supervision of normal first , antepartum*; Depression [...] Tablet by mouth in the morning. Active TouchOfModern.com Flex System w/Device Kit Use to test blood sugars 4 times daily (fasting, 1 hour after breakfast, lunch, and dinner) 1 Kit 4 Active CartRescuer Delica Lancets 30G Use to test blood sugars 4 times daily (fasting, 1 hour after breakfast, lunch, and dinner) 200 Each 6 4 Active TouchOfModern.com In Vitro Strip (Glucose Blood) Use to [...] fastings; Ordered Lantus 10 units at bedtime 04/08/20248039-NAW-ectmukb stable (2 elevated fasting blood sugars) 04/15/20249473-EBY-lgcesij stable (rare elevation) 04/22/24: RPM reviewed; stable; continue Lantus 10 units at bedtime 04/29/20249820-HRF-ztkmuhegd via hemal and messaging. Stable 05/06/20244461-KNH-afqachxxx via hemal and messaging. Stable Assessment & [...] Recommend nutrition consult with RDN (Registered Dietitian Icing Mixer). Lifestyle changes are also indicated including optimizing [...] money to get more. Never true 12/20/2023 El[place] Depression Scale Answer Date Recorded [place] Depression Scale Total 11 10/25/2023 The thought [...] No 12/20/2023 Does the household have a [facility] source of income? (Household - for ages [...] Sign Reading Time Taken Comments Blood Pressure - - Pulse - - Temperature - - Respiratory Rate - - Oxygen Saturation - - Inhaled Oxygen Concentration - - Weight 72.6 kg (160 lb) 05/06/2024 1:34 PM EST Height - - Body Mass Index 28.34 04/15/2024 10:48 AM EST documented in this encounter Progress Notes * Negin Yu CMA - 05/06/2024 1:34 PM EST 37w6d + contractions Requesting cervical check today. Increase in discharge * Rita Benton CRNP - 05/06/2024 1:26 PM EST 37w6d Normal growth scan, cephalic presentation with MFM last week. Blood sugars within range, managed by ADAPT. Ctx q6-7 mins starting this morning, painful; requests cervical check. Some increase in discharge, doesn't feel like ROM. Denies bleeding. Normal movement. Cervix 3-4 cm, 90% effaced, cephalic. Not grossly ruptured. Pt advised to go right to L&D with , agreeable. L&D and Dr Cano notified. Pet Care Associate Documentation Provider requested cutter and edge trimmer. Name of cutter and edge trimmer: SAHIL Cruz ASSESSMENT assessment with Non-stress Test completed on 05/06/2024 at 37.6 weeks gestation for indication of gestational diabetes mellitus heart baseline: 130 bpm Variability: Moderate Decelerations: absent Accelerations: present Contractions: Present q2-6 minutes NST start time: 1322 NST stop time: 1354 NST strip reviewed, interpreted, and approved by OB provider, SAHIL Zepeda . NST strip stored in clinic storage file documented in this encounter Plan of Treatment Upcoming Encounters Date Type Department Care Team (Late st Contact Info) Description 05/09/2024 9:00 AM EST Office Visit Gynecology/Obstetrics Leila Lynn [address] [place] [address] Floresita Cm PA-C [address] [place] [address] Erin Lynn Stress Tests Марина [address] [place] [address] 05/13/2024 1:00 PM EST Office Visit Gynecology/Obstetrics Liela Lynn [address] [place] [address] [place], SAHIL Barajas [address] [place] [address] Lynn, Non Stress Tests Марина [address] [place] [address] 05/16/2024 9:45 AM EST Office Visit Gynecology/Obstetrics Leila Lynn [address] [place] [address] Stacey Wei CRNP [address] [place] [address] Lynn, Non Stress Tests Марина [address] [place] [address] Health Maintenance Due Date Last Done Comments [...] vaccination documented in this encounter Care Teams Pediatric Dermatologist Relationship Specialty Start Date End Date René Valle MD [address] [facility] [place] [address] PCP - General Family Medicine 05/19/22 documented as of this encounter
[2024-05-07] MEDS: LIDOCAINE 2%/EPINEPHRINE 1:200,000 20 ML PF ONE (01:09)
[2024-05-07] MEDS: fentANYL 2 MCG/ML BUPIVacaine 0.125%-NSS 100ML BAG ONE (01:09)
[2024-05-07] MEDS: BUPIVACAINE 0.25% PF 30 ML VIAL ONE (01:21)
[2024-05-07] MEDS: fentaNYL citrate PF 100 MCG/2 ML VIAL ONE (01:22)
[2024-05-07] MEDS: ePHEDrine sulfate 50 MG/ML AMP ONE (01:22)
[2024-05-07] MEDS: SODIUM CHLORIDE 0.9% PF INJ 10 ML VIAL ONE (01:23)
[2024-05-07] MEDS: SODIUM CHLORIDE 0.9% PF INJ 10 ML VIAL EPI STA (01:24)
[2024-05-07] MEDS: LIDOCAINE 2%/EPINEPHRINE 1:200,000 20 ML PF EPI STA (01:24)
[2024-05-07] MEDS: fentaNYL citrate PF 100 MCG/2 ML VIAL EPI STA (01:24)
[2024-05-07] MEDS: BUPIVACAINE 0.25% PF 30 ML VIAL EPI STA (01:24)
[2024-05-07] MEDS ORDERED: OXYTOCIN 30 UNITS/NSS 30 UNITS/500 ML BAG IV PRN ×2 (02:30→06:31)
--- NOTE | 2024-05-07 02:30 | Obstetrical Progress Note ---
Date of Service May 07, 2024 Assessment & Plan Admission and Anticipated Discharge Date Admission Date: May 07, 2024 Subjective Patient is reevaluated. She has received epidural and looks comfortable. She is sleeping, as well as her . FHR Categ I Point View ctxs q 4-6 min Plan to recheck at 4 am with FS glucose and VE, if no change will augment with Oxytocin Continue to monitor Results & Data Vital Signs (Past 12 Hours) Vital Signs Temp Pulse Resp BP Pulse Ox 05/07/24 02:24 75 98 05/07/24 02:19 76 98 05/07/24 02:18 75 114/67 05/07/24 02:14 76 98 05/07/24 02:09 79 97 05/07/24 02:04 74 97 05/07/24 02:02 76 106/60 05/07/24 01:59 77 97 05/07/24 01:54 77 97 05/07/24 01:49 77 97 05/07/24 01:47 73 18 118/61 05/07/24 01:44 77 99 05/07/24 01:39 76 98 05/07/24 01:38 18 05/07/24 01:38 18 05/07/24 01:34 78 98 05/07/24 01:33 78 115/56 L 05/07/24 01:29 83 98 05/07/24 01:27 80 126/59 L 05/07/24 01:24 80 99 05/07/24 01:23 18 05/07/24 01:23 18 05/07/24 01:21 84 118/57 L 05/07/24 01:20 83 118/57 L 05/07/24 01:19 81 123/58 L 99 05/07/24 01:18 80 18 122/58 L 05/07/24 01:17 82 124/60 05/07/24 01:16 76 118/57 L 05/07/24 01:15 86 118/57 L 05/07/24 01:14 83 99 05/07/24 01:13 80 18 124/70 05/07/24 01:12 96 H 05/07/24 01:12 132/79 05/07/24 01:12 98 H 128/89 05/07/24 01:09 18 05/07/24 01:09 18 05/07/24 01:09 100 01/07/25 01:09 86 05/07/24 01:09 123/77 05/07/24 01:09 81 124/73 05/07/24 01:04 85 100 05/07/24 00:59 107 H 100 05/06/24 21:30 18 05/06/24 21:30 36.6 C 18 05/06/24 19:00 36.6 C 18 05/06/24 19:00 36.6 C 72 18 99/65 L 05/06/24 16:47 86 101/56 L 05/06/24 16:16 80 109/68 05/06/24 15:06 36.9 C 95 H 17 120/79 05/06/24 14:52 95 H 120/79 05/06/24 14:50 17 05/06/24 14:50 36.9 C 17
[2024-05-07] MEDS: CALCIUM CARBONATE 500 MG CHEWABLE TAB PO PRN (04:14)
[2024-05-07] MEDS: OXYTOCIN 30 UNITS/NSS 30 UNITS/500 ML BAG IV PRN (06:23)
[2024-05-07] MEDS ORDERED: bisacodyL 10 MG SUPP PR PRN (06:31)
[2024-05-07] MEDS ORDERED: BENZOCAINE 20% SPRY 85 APPLN/85 GM CAN EXT PRN (06:31)
[2024-05-07] MEDS ORDERED: oxyCODONE/ACETAMINOPHEN 5mg/325mg TAB PO PRN (06:31)
[2024-05-07] MEDS ORDERED: HYDROCORTISONE ACETATE 25 MG SUPP PR PRN (06:31)
[2024-05-07] MEDS ORDERED: DIPHTHER/TETAN/PERTUS Vaccine (Tdap, Adol/Adult) 0.5mL IM ONE (06:31)
--- NOTE | 2024-05-07 06:34 | Delivery Summary ---
Vaginal Delivery Summary Date of Service May 07, 2024 Vaginal Delivery Summary Patient was found to be fully dilated and desires to push. She pushed with 3 contractions only and delivered the head and then shoulders with minimal traction. The baby was handed off to the mother. The cord was clampedx2 and cut at 1 minute. The vagina and perineum were checked and found to have 2nd degree perineal laceration. Rectal exam was done and noted good sphincter tone. The gloves were changes. The vaginal mucosa was repaired with 2/0 vicryl and skin on subcuticular fashion. The placenta was delivered spontaneously as intact and complete. The uterus was explored and found to be empty. QBL was 246 ml. The fundus was firm The baby was a viable female infant, Apgars 8/9, the weight is pending The mother and the baby tolerated the procedure well. No complications happened and I was present during whole procedure.
--- NOTE | 2024-05-07 07:55 | Anesthesia Procedure Note ---
Date of Service May 07, 2024 Anesthesia Post Epidural Note Vital Signs Vital Signs: Temp Pulse Resp BP Pulse Ox 37.2 C 82 18 103/57 L 97 05/07/24 06:30 05/07/24 07:46 05/07/24 06:30 05/07/24 07:46 05/07/24 06:44 Pain Intensity Abdomen: Pain Intensity: 5 Notes Mental Status: alert / awake / arousable Nausea / Vomiting: adequately controlled Pain: adequately controlled Airway Patency, RR, SpO2: stable & adequate BP & HR: stable & adequate Hydration State: stable & adequate Neuraxial Anesthesia: was administered and sensory block is resolving Anesthetic Complications: no major complications apparent and Pt Satisfied with anesthetic care Epidural: Removed without complications and With tip intact
[2024-05-07] MEDS: DOCUSATE SODIUM 100 MG CAP PO SCH (09:02)
[2024-05-07] MEDS: PRENATAL VITAMIN 1 TAB PO SCH (09:02)
[2024-05-07] MEDS: FERROUS SULFATE 325 MG TAB PO SCH (09:02)
[2024-05-07] MEDS: IBUPROFEN 600 MG TAB PO PRN (12:14)
[2024-05-07] MEDS: ACETAMINOPHEN 325 MG TAB PO PRN (21:05)
[2024-05-08 03:13] VITALS: O2SAT 98
[2024-05-08 06:58] LABS: Hematocrit (blood only) 33.2 % (37.0-47.0); Hemoglobin 11.1 g/dl (12.0-16.0); Mean Corpuscular Hemoglobin 28.5 pg (25.0-34.0); Mean Corpuscular Hgb Conc 33.4 g/dL (32.0-36.0); Mean Corpuscular Volume 85.1 fL (80.0-100.0); Mean Platelet Volume 9.2 fL (9.4-12.4); Platelet Count 243 K/uL (130-400); RDW Standard Deviation 46.6 fL (36.4-46.3); White Blood Count 12.18 K/ul (4.8-10.8)
[2024-05-08] MEDS: buPROPion SR 150 MG TABCR PO SCH (07:40)
[2024-05-08] MEDS: SERTRALINE HCL 100 MG TABLET PO SCH (07:40)
--- NOTE | 2024-05-08 10:00 | Obstetrical Progress Note ---
Date of Service May 08, 2024 Assessment & Plan Admission and Anticipated Discharge Date Admission Date: May 07, 2024 Subjective abdomen soft and non tender ambulating well no calf tenderness ambulating well vaginal bleeding scant hgb 11.1 Results & Data Vital Signs (Past 12 Hours) Vital Signs Temp Pulse Resp BP Pulse Ox O2 Del Method 05/08/24 07:32 36.8 C 80 18 110/75 98 Room Air 05/08/24 03:10 36.8 C 76 20 113/74 98 Room Air 05/07/24 23:45 36.9 C 83 20 100/64 99 Room Air
[2024-05-08] MEDS: bisacodyL 5 MG TABEC PO SCH (20:55)
[2024-05-09 06:45] VITALS: BP 108/73; PULSE 62; RESP 18
[2024-05-09 06:57] LABS: Hematocrit (blood only) 36.4 % (37.0-47.0)
--- NOTE | 2024-05-09 08:48 | Obstetrical Progress Note ---
Date of Service May 09, 2024 Assessment & Plan Admission and Anticipated Discharge Date Admission Date: May 07, 2024 Subjective Patient is seen and examined. She feels well, no complaints. Ambulating without dizziness Voiding without difficulty Tolerating regular diet with out N&V Bleeding is minimal No fever/ chills/ CP/ SOB/ N&V/ Leg pain Breast feeding without problems Vital Signs Temp Pulse Resp BP Pulse Ox O2 Del Method 05/09/24 08:00 36.8 C 05/09/24 06:40 62 18 108/73 98 Room Air Lab Results 05/07/24 05/07/24 05/07/24 Range/Units 00:15 00:22 04:33 WBC 11.92 H (4.8-10.8) K/ul RBC 4.30 (4.20-5.40) M/uL Hgb 12.1 (12.0-16.0) g/dl Hct 35.7 L (37.0-47.0) % MCV 83.0 (80.0-100.0) fL MCH 28.1 (25.0-34.0) pg MCHC 33.9 (32.0-36.0) g/dL RDW Std Deviation 44.3 (36.4-46.3) fL RDW Coeff of Jeanne 14.7 H (11.5-14.5) % Plt Count 282 (130-400) K/uL MPV 9.1 L (9.4-12.4) fL Sodium 135 L (136-145) mmol/L Potassium 3.9 (3.5-5.1) mmol/L Chloride 107 (98-107) mmol/L Carbon Dioxide 19 L (21-32) mmol/L Anion Gap 9 (3-11) BUN 11 (6-23) mg/dl Creatinine 0.80 (0.6-1.2) mg/dl Est Cr Clr Drug Dosing 96.4 ml/min eGFR 100.33 BUN/Creatinine Ratio 13.8 (10-20) Glucose 99 (70-99(Fasting)) mg/dl POC Glucose 90 (70-99) mg/dl Calcium 8.5 L (8.6-10.3) mg/dl Total Bilirubin 0.3 (0.2-1.0) mg/dl AST 21 (13-39) U/L ALT 20 (7-52) U/L Alkaline Phosphatase 215 H (34-104) U/L Total Protein 6.4 (6.0-8.3) gm/dl Albumin 3.3 L (3.4-5.0) gm/dl Globulin 3.1 (2.5-4.0) gm/dl Albumin/Globulin Ratio 1.1 (0.9-2) Treponema pallidum Ab Negative (Negative) 05/08/24 05/09/24 Range/Units 06:20 06:20 WBC 12.18 H (4.8-10.8) K/ul RBC 3.90 L (4.20-5.40) M/uL Hgb 11.1 L 12.0 (12.0-16.0) g/dl Hct 33.2 L 36.4 L (37.0-47.0) % MCV 85.1 (80.0-100.0) fL MCH 28.5 (25.0-34.0) pg MCHC 33.4 (32.0-36.0) g/dL RDW Std Deviation 46.6 H (36.4-46.3) fL RDW Coeff of Jeanne 15.0 H (11.5-14.5) % Plt Count 243 (130-400) K/uL MPV 9.2 L (9.4-12.4) fL Sodium (136-145) mmol/L Potassium (3.5-5.1) mmol/L Chloride (98-107) mmol/L Carbon Dioxide (21-32) mmol/L Anion Gap (3-11) BUN (6-23) mg/dl Creatinine (0.6-1.2) mg/dl Est Cr Clr Drug Dosing ml/min eGFR BUN/Creatinine Ratio (10-20) Glucose (70-99(Fasting)) mg/dl POC Glucose (70-99) mg/dl Calcium (8.6-10.3) mg/dl Total Bilirubin (0.2-1.0) mg/dl AST (13-39) U/L ALT (7-52) U/L Alkaline Phosphatase (34-104) U/L Total Protein (6.0-8.3) gm/dl Albumin (3.4-5.0) gm/dl Globulin (2.5-4.0) gm/dl Albumin/Globulin Ratio (0.9-2) Treponema pallidum Ab (Negative) PE: General: Alert, orientedx3, NAD Abd: soft, NT, fundus firm, below Umbilicus Perineum intact, Lochia rubra minimal Ext; NT, no edema AP: 34 yo s/p , ppd# 2 VSS Afebrile doing well Continue routine care All questions were answered D/C home , f/u in office Results & Data Vital Signs (Past 12 Hours) Vital Signs Temp Pulse Resp BP Pulse Ox O2 Del Method 05/09/24 08:00 36.8 C 05/09/24 06:40 62 18 108/73 98 Room Air
[2024-05-09 09:30] VITALS: TEMP 98.4
== END 2024-05-09 11:30 | disposition home or self-care (01) | DRG 807 ==
LOC: OPB 14:34 → 4S1 14:37 → 4E2 05-07 10:32